=== PATIENT | female | born 1965 | race Caucasian/White ===

== ENCOUNTER 2017-11-27 00:07 | Outpatient (CLI) | payer MEDICARE, MEDICAID ==
[~2017-11-27 00:07] MED LIST: ASPI-611 PO; ATOR-2 PO; BUPR150T8 PO; DESM0.2T23 PO; DICL100G15 TOP; DOCU100C41 PO; DOL10T PO; DULO-31 PO; ESOM40CA30 PO; ESOM40SU PO; FURO40TA4 PO; GABA-534 PO; GEMF600T3 PO; INSU100V36 SQ; LABE100T PO; RANI300T7 PO; SUMA25TA35 PO; TEMA15CA5 PO; TETR500C PO; TIZA2CAP7 PO; TOPI100T18 PO; TRAZ-143 PO; VALA100027 PO
== END 2017-11-27 23:59 | disposition home or self-care (01) ==
LOC: DIABETIC 00:07
PROVIDERS: ATTEND Family Medicine
DX: E11.65 Type 2 diabetes mellitus with hyperglycemia (principal); E11.22 Type 2 diabetes mellitus with diabetic chronic kidney disease; I12.9 Hypertensive chronic kidney disease with stage 1 through stage 4 chronic kidney disease, or unspecified chronic kidney disease; N18.9 Chronic kidney disease, unspecified; J45.909 Unspecified asthma, uncomplicated
CPT/HCPCS: G0108

== ENCOUNTER 2018-01-27 13:14 | Emergency (ER) | payer MEDICARE, MEDICAID ==
[~2018-01-27] VITALS: Ht 172.7 cm; Wt 106.0 kg
[2018-01-27 14:00] LABS: BASOPHILS # (AUTO) 0.1 X10'3 (0-0.2); BASOPHILS % (AUTO) 1.1 % (0-1); EOSINOPHILS # (AUTO) 0.3 X10'3 (0-0.9); EOSINOPHILS % (AUTO) 2.8 % (0-6); HEMATOCRIT 39.8 % (35.0-45.0); HEMOGLOBIN 13.4 g/dl (12.0-16.0); LYMPHOCYTES % (AUTO) 18.1 % (21-51); MEAN CORPUSCULAR HEMOGLOBIN 31.8 PG (27.0-31.0); MEAN CORPUSCULAR HGB CONC 33.7 % (33.0-36.5); MEAN CORPUSCULAR VOLUME 94.6 FL (78-98); MEAN PLATELET VOLUME 7.8 FL (7.4-10.4); MONOCYTES # (AUTO) 0.6 X10'3 (0-0.9); MONOCYTES % (AUTO) 5.5 % (2-12); NEUTROPHILS # (AUTO) 7.9 X10'3 (1.8-7.7); NEUTROPHILS % (AUTO) 72.5 % (42-75); PLATELET COUNT 222 X10'3 (140-440); RED BLOOD COUNT 4.21 X10'6 (4.20-5.60); RED CELL DISTRIBUTION WIDTH 13.4 % (11.5-14.5); WHITE BLOOD COUNT 10.9 X10'3 (4.5-11.0)
[2018-01-27 14:09] LABS: PROTHROMBIN TIME 10.7 SECONDS (9.0-12.0)
[2018-01-27 14:14] LABS: ALANINE AMINOTRANSFERASE 31 U/L (12-78); ALBUMIN 3.7 G/DL (3.4-5.0); ALBUMIN/GLOBULIN RATIO 1.1 (1.1-1.5); ALKALINE PHOSPHATASE 104 IU/L (46-116); ANION GAP 10 (8-16); ASPARTATE AMINO TRANSFERASE 18 U/L (10-37); BILIRUBIN,TOTAL 0.3 MG/DL (0.1-1.0); BLOOD UREA NITROGEN 14 MG/DL (7-18); BUN/CREATININE RATIO 12.7 (6.6-38.0); CALCIUM 9.2 MG/DL (8.5-10.1); CHLORIDE 106 MMOL/L (99-107); GLUCOSE 123 MG/DL (70-104); POTASSIUM 3.8 MMOL/L (3.5-5.1); SODIUM 145 MMOL/L (135-145); TOTAL PROTEIN 7.2 G/DL (6.4-8.2); eGFR 52 ML/MIN
[2018-01-27] MEDS ORDERED: normal saline 1000ML IV soln IVB ONE (14:30)
[2018-01-27] MEDS ORDERED: ketorolac tromethamine 15mg/ml inj. IV ONE (14:30)
[2018-01-27 15:07] LABS: LIPASE < 50 U/L (73-393)
[2018-01-27 15:49] LABS: CLARITY,URINE Clear (Clear); COLOR,URINE Yellow (Yellow); GLUCOSE, URINE Negative (Neg); KETONES,URINE Negative (Neg); LEUKOCYTE ESTERASE ,URINE Negative (Neg); NITRITES, URINE Negative (Neg); OCCULT BLOOD,URINE Negative (Neg); PROTEIN,URINE Negative (Neg); UROBILINOGEN,URINE 0.2 E.U/dL (0.2-1.0)
[2018-01-27 15:52] LABS: UA COLLECTION TYPE CLN CATCH MIDSTREAM
[2018-01-27 16:46] VITALS: BP 165/105
== END 2018-01-27 16:48 | disposition home or self-care (01) ==
LOC: ER 13:16
DX: R10.12 Left upper quadrant pain (principal); E78.00 Pure hypercholesterolemia, unspecified; I10 Essential (primary) hypertension; J44.9 Chronic obstructive pulmonary disease, unspecified; E11.9 Type 2 diabetes mellitus without complications; Z90.710 Acquired absence of both cervix and uterus; Z98.890 Other specified postprocedural states; Z79.82 Long term (current) use of aspirin; Z79.899 Other long term (current) drug therapy; Z88.1 Allergy status to other antibiotic agents; Z88.0 Allergy status to penicillin; Z88.5 Allergy status to narcotic agent; Z88.8 Allergy status to other drugs, medicaments and biological substances; Z79.4 Long term (current) use of insulin
CPT/HCPCS: 36415; 74176; 80053; 81003; 83690; 85025; 85610; 96361; 96374; 99285; J1885; J7030

== ENCOUNTER 2018-02-26 00:24 | Outpatient (CLI) | payer MEDICARE, MEDICAID | END 2018-02-26 23:59 | disposition home or self-care (01) | LOC: DIABETIC 00:24 | PROVIDERS: ATTEND Family Medicine | DX: E11.65 Type 2 diabetes mellitus with hyperglycemia (principal); J44.9 Chronic obstructive pulmonary disease, unspecified; I12.9 Hypertensive chronic kidney disease with stage 1 through stage 4 chronic kidney disease, or unspecified chronic kidney disease; E11.22 Type 2 diabetes mellitus with diabetic chronic kidney disease; N18.9 Chronic kidney disease, unspecified | CPT/HCPCS: G0108 ==

== ENCOUNTER 2018-05-28 04:10 | Outpatient (CLI) | payer MEDICARE, MEDICAID | END 2018-05-28 23:59 | disposition home or self-care (01) | LOC: DIABETIC 04:10 | PROVIDERS: ATTEND Family Medicine | DX: E11.9 Type 2 diabetes mellitus without complications (principal) | CPT/HCPCS: G0108 ==

== ENCOUNTER 2018-09-04 00:56 | Outpatient (CLI) | payer MEDICARE, MEDICAID ==
[~2018-09-04 00:56] MED LIST changes: -GEMF600T3 PO; +GEMF600T4 PO; -LABE100T PO; +LABE100T5 PO; +TETR-59 PO; -TETR500C PO; -TRAZ-143 PO; +TRAZ-218 PO
== END 2018-09-04 23:59 | disposition home or self-care (01) ==
LOC: DIABETIC 00:56
PROVIDERS: ATTEND Family Medicine
DX: E11.65 Type 2 diabetes mellitus with hyperglycemia (principal); I10 Essential (primary) hypertension; J44.9 Chronic obstructive pulmonary disease, unspecified; M19.90 Unspecified osteoarthritis, unspecified site; Z79.82 Long term (current) use of aspirin; Z79.84 Long term (current) use of oral hypoglycemic drugs; Z79.899 Other long term (current) drug therapy; Z79.4 Long term (current) use of insulin
CPT/HCPCS: G0108

== ENCOUNTER 2018-11-08 10:25 | Emergency (ER) | payer MEDICAID ==
[~2018-11-08] VITALS: Ht 172.7 cm; Wt 117.2 kg
[~2018-11-08 10:25] MED LIST changes: -GEMF600T4 PO; +GEMF600T89 PO
[2018-11-08] MEDS ORDERED: ketorolac trometh. 30mg/ml inj. IV ONE (12:15)
[2018-11-08] MEDS ORDERED: IBUP-1985 PO (13:35)
[2018-11-08 14:05] VITALS: BP 183/107
== END 2018-11-08 14:07 | disposition home or self-care (01) ==
LOC: ER 10:26
DX: S52.512A Displaced fracture of left radial styloid process, initial encounter for closed fracture (principal); E78.00 Pure hypercholesterolemia, unspecified; I10 Essential (primary) hypertension; J44.9 Chronic obstructive pulmonary disease, unspecified; E11.9 Type 2 diabetes mellitus without complications; Z90.710 Acquired absence of both cervix and uterus; Z98.890 Other specified postprocedural states; Z88.0 Allergy status to penicillin; Z88.1 Allergy status to other antibiotic agents; Z88.5 Allergy status to narcotic agent; Z88.8 Allergy status to other drugs, medicaments and biological substances; Z79.82 Long term (current) use of aspirin; Z79.899 Other long term (current) drug therapy; Z79.4 Long term (current) use of insulin; W19.XXXA Unspecified fall, initial encounter; Y93.01 Activity, walking, marching and hiking; Y92.89 Other specified places as the place of occurrence of the external cause; Y99.8 Other external cause status
CPT/HCPCS: 29125; 73110; 73502; 73564; 82948; 96374; 99284; J1885

== ENCOUNTER 2018-11-20 11:04 | Outpatient (CLI) | payer MEDICARE, MEDICAID ==
[~2018-11-20] VITALS: Ht 172.7 cm; Wt 111.7 kg
[~2018-11-20 11:04] MED LIST changes: +IBUP-1985 PO; +TOP100T PO; -TOPI100T18 PO
[2018-11-20 11:05] VITALS: BP 118/83
== END 2018-11-20 11:42 | disposition home or self-care (01) ==
LOC: ORTHO 11:04
PROVIDERS: ATTEND Nurse Practitioner Family
DX: S52.612A Displaced fracture of left ulna styloid process, initial encounter for closed fracture (principal); S52.592A Other fractures of lower end of left radius, initial encounter for closed fracture; E78.00 Pure hypercholesterolemia, unspecified; I10 Essential (primary) hypertension; J44.9 Chronic obstructive pulmonary disease, unspecified; E11.9 Type 2 diabetes mellitus without complications; Z90.710 Acquired absence of both cervix and uterus; Z98.890 Other specified postprocedural states; Z88.0 Allergy status to penicillin; Z88.1 Allergy status to other antibiotic agents; Z88.5 Allergy status to narcotic agent; Z88.8 Allergy status to other drugs, medicaments and biological substances; Z79.82 Long term (current) use of aspirin; Z79.899 Other long term (current) drug therapy; Z79.4 Long term (current) use of insulin; W19.XXXA Unspecified fall, initial encounter; Y93.01 Activity, walking, marching and hiking; Y92.89 Other specified places as the place of occurrence of the external cause; Y99.8 Other external cause status
CPT/HCPCS: 73110; 99213

== ENCOUNTER 2018-11-27 11:07 | Outpatient (CLI) | payer MEDICARE, MEDICAID ==
[2018-11-27 11:06] VITALS: BP 145/88
== END 2018-11-27 11:53 | disposition home or self-care (01) ==
LOC: ORTHO 11:07
PROVIDERS: ATTEND Nurse Practitioner Family
DX: S52.592D Other fractures of lower end of left radius, subsequent encounter for closed fracture with routine healing (principal); S52.612D Displaced fracture of left ulna styloid process, subsequent encounter for closed fracture with routine healing; I10 Essential (primary) hypertension; J44.9 Chronic obstructive pulmonary disease, unspecified; E11.9 Type 2 diabetes mellitus without complications; E78.00 Pure hypercholesterolemia, unspecified; G47.30 Sleep apnea, unspecified; K21.9 Gastro-esophageal reflux disease without esophagitis; E03.9 Hypothyroidism, unspecified; Z79.82 Long term (current) use of aspirin; Z79.899 Other long term (current) drug therapy; Z88.0 Allergy status to penicillin; Z88.1 Allergy status to other antibiotic agents; Z88.8 Allergy status to other drugs, medicaments and biological substances; Z87.891 Personal history of nicotine dependence; W19.XXXD Unspecified fall, subsequent encounter
CPT/HCPCS: 73110; 99213

== ENCOUNTER 2018-12-03 11:03 | Outpatient (CLI) | payer MEDICARE, MEDICAID ==
[2018-12-03 10:51] VITALS: BP 150/102
== END 2018-12-03 11:43 | disposition home or self-care (01) ==
LOC: ORTHO 11:03
PROVIDERS: ATTEND Nurse Practitioner Family
DX: S52.592D Other fractures of lower end of left radius, subsequent encounter for closed fracture with routine healing (principal); S52.612D Displaced fracture of left ulna styloid process, subsequent encounter for closed fracture with routine healing; I10 Essential (primary) hypertension; J44.9 Chronic obstructive pulmonary disease, unspecified; E11.9 Type 2 diabetes mellitus without complications; E78.00 Pure hypercholesterolemia, unspecified; G43.909 Migraine, unspecified, not intractable, without status migrainosus; K21.9 Gastro-esophageal reflux disease without esophagitis; F12.90 Cannabis use, unspecified, uncomplicated; Z79.82 Long term (current) use of aspirin; Z79.899 Other long term (current) drug therapy; Z88.0 Allergy status to penicillin; Z88.1 Allergy status to other antibiotic agents; Z88.8 Allergy status to other drugs, medicaments and biological substances; Z87.891 Personal history of nicotine dependence; W19.XXXD Unspecified fall, subsequent encounter
CPT/HCPCS: 73110; G0463

== ENCOUNTER 2018-12-16 09:08 | Outpatient (CLI) | payer MEDICARE, MEDICAID ==
[2018-12-16 09:03] VITALS: BP 156/92
== END 2018-12-16 10:05 | disposition home or self-care (01) ==
LOC: ORTHO 09:08
PROVIDERS: ATTEND Nurse Practitioner Family
DX: S52.592D Other fractures of lower end of left radius, subsequent encounter for closed fracture with routine healing (principal); S52.612D Displaced fracture of left ulna styloid process, subsequent encounter for closed fracture with routine healing; I10 Essential (primary) hypertension; J44.9 Chronic obstructive pulmonary disease, unspecified; E11.9 Type 2 diabetes mellitus without complications; E78.00 Pure hypercholesterolemia, unspecified; G43.909 Migraine, unspecified, not intractable, without status migrainosus; K21.9 Gastro-esophageal reflux disease without esophagitis; F12.90 Cannabis use, unspecified, uncomplicated; Z79.82 Long term (current) use of aspirin; Z79.899 Other long term (current) drug therapy; Z88.0 Allergy status to penicillin; Z88.1 Allergy status to other antibiotic agents; Z88.8 Allergy status to other drugs, medicaments and biological substances; Z87.891 Personal history of nicotine dependence; W19.XXXD Unspecified fall, subsequent encounter
CPT/HCPCS: 73110; 99213; A4590

== ENCOUNTER 2018-12-31 09:08 | Outpatient (CLI) | payer MEDICARE, MEDICAID ==
[2018-12-31 09:02] VITALS: BP 146/81
== END 2018-12-31 09:45 | disposition home or self-care (01) ==
LOC: ORTHO 09:08
PROVIDERS: ATTEND Nurse Practitioner Family
DX: S52.592D Other fractures of lower end of left radius, subsequent encounter for closed fracture with routine healing (principal); S52.612D Displaced fracture of left ulna styloid process, subsequent encounter for closed fracture with routine healing; I10 Essential (primary) hypertension; J44.9 Chronic obstructive pulmonary disease, unspecified; E11.9 Type 2 diabetes mellitus without complications; G43.909 Migraine, unspecified, not intractable, without status migrainosus; K21.9 Gastro-esophageal reflux disease without esophagitis; F12.90 Cannabis use, unspecified, uncomplicated; Z79.82 Long term (current) use of aspirin; Z79.899 Other long term (current) drug therapy; Z88.0 Allergy status to penicillin; Z88.1 Allergy status to other antibiotic agents; Z87.891 Personal history of nicotine dependence; W19.XXXD Unspecified fall, subsequent encounter
CPT/HCPCS: 73110; 99213; A4590

== ENCOUNTER 2019-01-12 04:09 | Outpatient (CLI) | payer MEDICARE, MEDICAID | END 2019-01-12 23:59 | disposition home or self-care (01) | LOC: DIABETIC 04:09 | PROVIDERS: ATTEND Family Medicine | DX: E11.9 Type 2 diabetes mellitus without complications (principal); Z71.3 Dietary counseling and surveillance | CPT/HCPCS: G0108 ==

== ENCOUNTER 2019-01-19 09:26 | Outpatient (CLI) | payer MEDICARE, MEDICAID ==
[2019-01-19 09:22] VITALS: BP 189/101
== END 2019-01-19 10:20 | disposition home or self-care (01) ==
LOC: ORTHO 09:26
PROVIDERS: ATTEND Nurse Practitioner Family
DX: S52.502D Unspecified fracture of the lower end of left radius, subsequent encounter for closed fracture with routine healing (principal); I10 Essential (primary) hypertension; E11.9 Type 2 diabetes mellitus without complications; G47.30 Sleep apnea, unspecified; M79.7 Fibromyalgia; X58.XXXD Exposure to other specified factors, subsequent encounter; Z90.710 Acquired absence of both cervix and uterus
CPT/HCPCS: 73110; 99213

== ENCOUNTER 2019-01-28 09:28 | Emergency (ER) | payer MEDICARE, MEDICAID ==
[~2019-01-28] VITALS: Ht 172.7 cm; Wt 121.8 kg
[2019-01-28 09:58] VITALS: BP 124/83
== END 2019-01-28 10:26 | disposition home or self-care (01) ==
LOC: ER 09:29
DX: I10 Essential (primary) hypertension (principal); E78.00 Pure hypercholesterolemia, unspecified; J44.9 Chronic obstructive pulmonary disease, unspecified; E11.9 Type 2 diabetes mellitus without complications; M79.7 Fibromyalgia; Z98.890 Other specified postprocedural states; Z90.710 Acquired absence of both cervix and uterus; Z88.1 Allergy status to other antibiotic agents; Z88.0 Allergy status to penicillin; Z88.5 Allergy status to narcotic agent; Z88.8 Allergy status to other drugs, medicaments and biological substances; Z79.82 Long term (current) use of aspirin; Z79.4 Long term (current) use of insulin; Z79.899 Other long term (current) drug therapy
CPT/HCPCS: 99281

== ENCOUNTER 2019-02-10 14:26 | Outpatient (CLI) | payer MEDICARE, MEDICAID ==
[2019-02-10 14:24] VITALS: BP 117/81
== END 2019-02-10 15:36 | disposition home or self-care (01) ==
LOC: ORTHO 14:26
PROVIDERS: ATTEND Orthopaedic Surgery
DX: S52.592D Other fractures of lower end of left radius, subsequent encounter for closed fracture with routine healing (principal); S52.612D Displaced fracture of left ulna styloid process, subsequent encounter for closed fracture with routine healing; I10 Essential (primary) hypertension; J44.9 Chronic obstructive pulmonary disease, unspecified; G47.30 Sleep apnea, unspecified; E11.9 Type 2 diabetes mellitus without complications; Z90.710 Acquired absence of both cervix and uterus; Z79.82 Long term (current) use of aspirin; X58.XXXD Exposure to other specified factors, subsequent encounter
CPT/HCPCS: 73110; 99213

== ENCOUNTER 2019-02-16 14:46 | Emergency (ER) | payer MEDICARE, MEDICAID ==
[~2019-02-16] VITALS: Ht 172.7 cm; Wt 122.7 kg
[~2019-02-16 14:46] MED LIST changes: -ESOM40CA30 PO; +ESOM40CA49 PO
[2019-02-16] MEDS ORDERED: MECL12.584 PO (16:05)
[2019-02-16 16:48] VITALS: BP 137/84
== END 2019-02-16 16:49 | disposition home or self-care (01) ==
LOC: ER 14:46
DX: S50.12XA Contusion of left forearm, initial encounter (principal); S60.212A Contusion of left wrist, initial encounter; R42 Dizziness and giddiness; E78.00 Pure hypercholesterolemia, unspecified; I10 Essential (primary) hypertension; J44.9 Chronic obstructive pulmonary disease, unspecified; E11.9 Type 2 diabetes mellitus without complications; M79.7 Fibromyalgia; Z98.890 Other specified postprocedural states; Z90.710 Acquired absence of both cervix and uterus; Z88.1 Allergy status to other antibiotic agents; Z88.8 Allergy status to other drugs, medicaments and biological substances; Z88.5 Allergy status to narcotic agent; Z79.82 Long term (current) use of aspirin; Z79.899 Other long term (current) drug therapy; W19.XXXA Unspecified fall, initial encounter; Y93.89 Activity, other specified; Y92.89 Other specified places as the place of occurrence of the external cause; Y99.9 Unspecified external cause status
CPT/HCPCS: 73060; 73090; 73110; 93005; 99284

== ENCOUNTER 2019-04-13 04:36 | Outpatient (CLI) | payer MEDICARE, MEDICAID ==
[~2019-04-13 04:36] MED LIST changes: +MECL12.584 PO; -TRAZ-218 PO; +TRAZ-251 PO
== END 2019-04-13 23:59 | disposition home or self-care (01) ==
LOC: DIABETIC 04:36
PROVIDERS: ATTEND Family Medicine
DX: E11.65 Type 2 diabetes mellitus with hyperglycemia (principal); I10 Essential (primary) hypertension; J44.9 Chronic obstructive pulmonary disease, unspecified; Z79.84 Long term (current) use of oral hypoglycemic drugs; Z79.4 Long term (current) use of insulin; Z79.899 Other long term (current) drug therapy
CPT/HCPCS: G0108

== ENCOUNTER 2019-08-05 01:34 | Outpatient (CLI) | payer MEDICARE, MEDICAID | END 2019-08-05 23:59 | disposition home or self-care (01) | LOC: DIABETIC 01:34 | PROVIDERS: ATTEND Family Medicine | DX: E11.65 Type 2 diabetes mellitus with hyperglycemia (principal); I10 Essential (primary) hypertension; J44.9 Chronic obstructive pulmonary disease, unspecified; Z79.4 Long term (current) use of insulin; Z79.84 Long term (current) use of oral hypoglycemic drugs; Z79.82 Long term (current) use of aspirin; Z79.899 Other long term (current) drug therapy | CPT/HCPCS: G0108 ==

== ENCOUNTER 2019-08-10 16:22 | Emergency (ER) | payer MEDICARE, MEDICAID ==
[~2019-08-10] VITALS: Ht 172.7 cm; Wt 98.0 kg
[2019-08-10] MEDS ORDERED: triamcinolone acetonide 0.1% ointment 15gm TP STA (17:23)
[2019-08-10] MEDS ORDERED: lactulose 20gm/30ml cup PO ONE (17:35)
[2019-08-10] MEDS ORDERED: mineral oil 133ml enema RC STA (17:58)
[2019-08-10] MEDS ORDERED: glycerin ADULT rectal suppository RC ONE (19:10)
[2019-08-10] MEDS ORDERED: MAGN296S50 PO (19:18)
--- NOTE | 2019-08-10 19:22 | NUR ---
PT HAS STOOL ON [facility]IN[facility] [place]
--- NOTE | 2019-08-10 19:22 | NUR ---
HELEN TRIPLETT NOTIFIED, WHILE PUTIING IN THE MINERAL ENIMA PT WS NOT TRYING TO HOLD THE MINERAL OIL IN HER RECTUM. THE MNERAL OIL WAS COMING OUT.
[2019-08-10 19:42] VITALS: BP 131/91
== END 2019-08-10 19:48 | disposition home or self-care (01) ==
LOC: ER 16:23
DX: K59.00 Constipation, unspecified (principal); E78.00 Pure hypercholesterolemia, unspecified; I10 Essential (primary) hypertension; J44.9 Chronic obstructive pulmonary disease, unspecified; E11.9 Type 2 diabetes mellitus without complications; G47.30 Sleep apnea, unspecified; M79.7 Fibromyalgia; F32.9 Major depressive disorder, single episode, unspecified; Z90.710 Acquired absence of both cervix and uterus; Z98.890 Other specified postprocedural states; Z88.1 Allergy status to other antibiotic agents; Z88.0 Allergy status to penicillin; Z88.5 Allergy status to narcotic agent; Z88.2 Allergy status to sulfonamides; Z91.09 Other allergy status, other than to drugs and biological substances; Z79.82 Long term (current) use of aspirin; Z79.4 Long term (current) use of insulin; Z79.899 Other long term (current) drug therapy
CPT/HCPCS: 74018; 82948; 99284

== ENCOUNTER 2019-12-09 15:20 | Emergency (ER) | payer MEDICARE, MEDICAID ==
[~2019-12-09] VITALS: Ht 172.7 cm; Wt 115.9 kg
[~2019-12-09 15:20] MED LIST changes: +MAGN296S70 PO; +MECL-183 PO; -MECL12.584 PO
[2019-12-09] MEDS ORDERED: ketorolac trometh inj. 60 MG/2 ML VIAL IM ONE (16:15)
[2019-12-09] MEDS ORDERED: fentaNYL/PF 50MCG/1 ML 2ML syringe IM ONE (16:15)
[2019-12-09 16:57] VITALS: BP 111/73
== END 2019-12-09 18:12 | disposition home or self-care (01) ==
LOC: ER 15:20
DX: S22.32XA Fracture of one rib, left side, initial encounter for closed fracture (principal); E78.00 Pure hypercholesterolemia, unspecified; I10 Essential (primary) hypertension; J44.9 Chronic obstructive pulmonary disease, unspecified; E11.9 Type 2 diabetes mellitus without complications; G47.30 Sleep apnea, unspecified; M79.7 Fibromyalgia; F32.9 Major depressive disorder, single episode, unspecified; Z90.710 Acquired absence of both cervix and uterus; Z98.890 Other specified postprocedural states; Z88.0 Allergy status to penicillin; Z88.5 Allergy status to narcotic agent; Z88.1 Allergy status to other antibiotic agents; Z88.8 Allergy status to other drugs, medicaments and biological substances; Z79.82 Long term (current) use of aspirin; Z79.899 Other long term (current) drug therapy; W01.190A Fall on same level from slipping, tripping and stumbling with subsequent striking against furniture, initial encounter; Y93.89 Activity, other specified; Y92.090 Kitchen in other non-institutional residence as the place of occurrence of the external cause; Y99.8 Other external cause status
CPT/HCPCS: 71101; 82948; 96372; 99283; J1885; J3010

== ENCOUNTER 2020-01-18 04:17 | Outpatient (CLI) | payer MEDICARE, MEDICAID ==
[~2020-01-18 04:17] MED LIST changes: -VALA100027 PO; +VALA100031 PO
== END 2020-01-18 23:59 | disposition home or self-care (01) ==
LOC: DIABETIC 04:17
PROVIDERS: ATTEND Family Medicine
DX: E11.65 Type 2 diabetes mellitus with hyperglycemia (principal)
CPT/HCPCS: G0108

== ENCOUNTER 2020-01-19 08:54 | Outpatient (CLI) | payer MEDICARE, MEDICAID | END 2020-01-19 23:59 | disposition home or self-care (01) | LOC: RAD 08:54 | PROVIDERS: ATTEND Psychiatry & Neurology Neurology | DX: R94.01 Abnormal electroencephalogram [EEG] (principal); G40.909 Epilepsy, unspecified, not intractable, without status epilepticus | CPT/HCPCS: 95816 ==

== ENCOUNTER 2020-06-08 11:18 | Observation (INO) | payer MEDICARE, MEDICAID ==
[~2020-06-08] VITALS: Ht 172.7 cm; Wt 111.4 kg
[2020-06-08] MEDS ORDERED: normal saline 1000ML IV soln IVB ONE (11:45)
[2020-06-08 12:06] LABS: BASOPHILS # (AUTO) 0.1 X10'3 (0-0.2); BASOPHILS % (AUTO) 0.7 % (0-1); EOSINOPHILS # (AUTO) 0.3 X10'3 (0-0.9); HEMATOCRIT 37.8 % (35.0-45.0); HEMOGLOBIN 12.5 g/dl (12.0-16.0); LYMPHOCYTES # (AUTO) 1.5 X10'3 (1.1-4.8); LYMPHOCYTES % (AUTO) 11.4 % (21-51); MEAN CORPUSCULAR HEMOGLOBIN 30.3 PG (27.0-31.0); MEAN CORPUSCULAR HGB CONC 33.2 g/dL (33.0-36.5); MEAN CORPUSCULAR VOLUME 91.4 FL (78-98); MEAN PLATELET VOLUME 7.4 FL (7.4-10.4); MONOCYTES # (AUTO) 0.7 X10'3 (0-0.9); MONOCYTES % (AUTO) 5.6 % (2-12); NEUTROPHILS # (AUTO) 10.3 X10'3 (1.8-7.7); NEUTROPHILS % (AUTO) 80.3 % (42-75); PLATELET COUNT 285 X10'3 (140-440); RED BLOOD COUNT 4.13 X10'6 (4.20-5.60); RED CELL DISTRIBUTION WIDTH 12.9 % (11.5-14.5); WHITE BLOOD COUNT 12.8 X10'3 (4.5-11.0)
--- NOTE | 2020-06-08 12:17 | NUR ---
pt stated took lovenox and novalog this morning at 0800 before breafast. pt unable to eat breakfast. mickey notified and ordered to give pt food to help with bs. turkey sandwitch, grahm crackers and apple sauce given to pt. no distress noted. vss.
[2020-06-08 12:19] LABS: ALANINE AMINOTRANSFERASE 28 U/L (12-78); ALBUMIN 3.5 G/DL (3.4-5.0); ALBUMIN/GLOBULIN RATIO 1.1 (1.1-1.5); ALKALINE PHOSPHATASE 85 IU/L (46-116); ANION GAP 6 (8-16); ASPARTATE AMINO TRANSFERASE 15 U/L (10-37); BILIRUBIN,TOTAL 0.4 MG/DL (0.1-1.0); BLOOD UREA NITROGEN 26 MG/DL (7-18); BUN/CREATININE RATIO 15.7 (6.6-38.0); CALCIUM 9.5 MG/DL (8.5-10.1); CHLORIDE 99 MMOL/L (99-107); CREATININE 1.66 MG/DL (0.40-0.90); GLUCOSE 91 MG/DL (70-104); SODIUM 136 MMOL/L (135-145); TOTAL CARBON DIOXIDE 31.1 MMOL/L (24-32); TOTAL PROTEIN 6.6 G/DL (6.4-8.2); eGFR 32 ML/MIN
[2020-06-08] MEDS ORDERED: aspirin 81mg tab.chew PO ONE (12:50)
[2020-06-08] MEDS ORDERED: regadenoson 0.4mg/5ml syringe IV PRN (13:00)
[2020-06-08] MEDS ORDERED: potassium CL 10mEq/100ml bag 100 ML IV PRN ×2 (13:00)
[2020-06-08] MEDS ORDERED: bisacodyl 10mg suppository rectal RC PRN (13:00)
[2020-06-08] MEDS ORDERED: metoprolol tartrate 1mg/ml inj IV PRN (13:00)
[2020-06-08] MEDS ORDERED: magnesium 4gm in 100ml NS 100 ML IV PRN (13:00)
[2020-06-08] MEDS ORDERED: magnesium 2GM in 50ml NS 50 ML IV PRN (13:00)
[2020-06-08] MEDS ORDERED: mag hydrox/Alum hydrox/simeth 30ml oral suspension PO PRN (13:00)
[2020-06-08] MEDS ORDERED: acetaminophen 325mg tablet PO PRN ×2 (13:00)
[2020-06-08] MEDS ORDERED: potassium Cl 20 mEq SR tablet PO PRN (13:00)
[2020-06-08] MEDS ORDERED: nitroGLYCERIN 0.4mg SUBLingual tab SL PRN (13:00)
[2020-06-08] MEDS ORDERED: magnesium hydroxide 30ml (MOM) UD suspension PO PRN (13:00)
[2020-06-08] MEDS ORDERED: magnesium Cl slow-release 64mg tablet PO PRN (13:00)
[2020-06-08] MEDS ORDERED: aminophylline 250mg/10ml inj. IV PRN (13:00)
[2020-06-08] MEDS ORDERED: CLON-473 PO (13:36)
[2020-06-08] MEDS ORDERED: OXYB5TAB16 PO (13:36)
[2020-06-08] MEDS ORDERED: MONT10TA26 PO (13:36)
[2020-06-08] MEDS ORDERED: BUPR150T6 PO (13:36)
[2020-06-08] MEDS ORDERED: ROPI2TAB7 PO (13:36)
[2020-06-08] MEDS ORDERED: OXYC15TA PO (13:36)
[2020-06-08] MEDS ORDERED: IRBE300T18 PO (13:36)
[2020-06-08] MEDS ORDERED: BACL10TA2 PO (13:36)
[2020-06-08] MEDS ORDERED: AMLO10TA13 PO (13:36)
[2020-06-08] MEDS ORDERED: INSU100V9 SQ (13:36)
[2020-06-08] MEDS ORDERED: DESM0.1T24 PO (13:36)
[2020-06-08] MEDS ORDERED: DICL100G30 TP (13:36)
[2020-06-08] MEDS ORDERED: NIFE-34 PO (13:36)
[2020-06-08] MEDS ORDERED: LANTUS SQ (13:36)
[2020-06-08] MEDS ORDERED: SUCR1TAB PO (13:36)
[2020-06-08] MEDS ORDERED: LACT10SO67 PO (13:36)
[2020-06-08] MEDS ORDERED: METF-795 PO (13:36)
[2020-06-08] MEDS ORDERED: LEVO300T2 PO (13:36)
[2020-06-08] MEDS ORDERED: FURO40TA4 PO (13:36)
[2020-06-08] MEDS ORDERED: CALC1TAB97 PO (13:36)
[2020-06-08] MEDS ORDERED: MECL-184 PO (13:36)
[2020-06-08] MEDS ORDERED: LABE200T5 PO (13:36)
[2020-06-08] MEDS ORDERED: BUSP-28 PO (13:36)
[2020-06-08] MEDS ORDERED: PANT40TA4 PO (13:36)
[2020-06-08] MEDS ORDERED: DULO60CA65 PO (13:36)
[2020-06-08] MEDS ORDERED: PRAV40TA3 PO (13:36)
[2020-06-08] MEDS ORDERED: CARB15DR82 EACHEYE (13:36)
[2020-06-08 14:03] LABS: HEMOGLOBIN A1C 6.3 % (4.5-6.2)
[2020-06-08] MEDS ORDERED: INSU100C4 SQ (14:08)
[2020-06-08] MEDS ORDERED: SUMA100T16 PO (14:08)
[2020-06-08] MEDS: normal saline 1000ml 1,000 ML IV SCH ×2 (14:22→23:36)
--- NOTE | 2020-06-08 14:35 | NUR ---
Received report from LISSETTE Maya. all questions answered
--- NOTE | 2020-06-08 14:55 | NUR ---
Patient arrived to unit via gurney. patient ambulated from gurney to bed. patient arrived with all known belongings. patient attached to monitoring and vitals signs stable. will continue to monitor
[2020-06-08 15:29] VITALS: BP 121/71
[2020-06-08 18:00] VITALS: BP 151/86
--- NOTE | 2020-06-08 18:25 | NUR ---
Patient in room MED 310. I have received report from Manuel, and had the opportunity to ask questions and assume patient care.
--- NOTE | 2020-06-08 19:52 | NUR ---
Patient just finished her dinner. Alert, oriented x4. Will recheck her blood sugar at 2100.
[2020-06-08] MEDS: K and/or MAG REPLACEMENT MC SCH (20:00)
[2020-06-08] MEDS: polyvinyl alcohol ophthalmic drops 15ml bottle EACHEYE SCH (20:26)
[2020-06-08] MEDS: ROPINIRole 1mg tablet PO SCH (20:26)
[2020-06-08] MEDS: sucralfate 1 gm tablet PO SCH ×2 (20:27→20:44)
[2020-06-08] MEDS: busPIRone 5mg tablet PO SCH (20:28)
[2020-06-08] MEDS: oxybutynin 5mg tablet PO SCH (20:28)
[2020-06-08] MEDS: buPROPion SR 100mg tab PO SCH (20:28)
[2020-06-08] MEDS: docusate sod 100mg capsule PO SCH (20:29)
[2020-06-08] MEDS: gabapentin 300mg capsule PO SCH (20:29)
[2020-06-08] MEDS: cloNIDine 0.1 mg tablet PO SCH (20:29)
[2020-06-08] MEDS: labetalol 100mg tablet PO SCH (20:31)
--- NOTE | 2020-06-08 20:31 | NUR ---
systolic blood pressure is 105. holding onto her blood pressor medications-labetalol and clonidine
--- NOTE | 2020-06-08 20:51 | NUR ---
PAGER ID: [phone] MESSAGE: Surekha Giraldo 55F, dmitted for syncope and elevated trops w hx of fibromyalgia, arthritis, COPD, HTN, DM, complaining of chronic pain. She takes 15mg oxycodone at home. He has allergy to codeine, hydrocodone, meperidine. Jonathan [phone]
[2020-06-08] MEDS ORDERED: DESMOPRESSIN ACETATE 0.1 MG TABLET PO SCH (21:00)
[2020-06-08] MEDS ORDERED: temazepam 15mg capsule PO PRN (21:00)
[2020-06-08] MEDS ORDERED: traZODone 50mg tablet PO SCH (21:00)
--- NOTE | 2020-06-08 21:04 | NUR ---
PAGER ID: [phone] MESSAGE: Surekha Giraldo 55F, admitted for syncope and elevated trops w hx of fibromyalgia, arthritis, COPD, HTN, DM, Allergic to Codeine, Dilaudid, morphine, Demorol, hydrocodone. She can't take dilaudid for pain. Jonathan ACCE [id number] Addendum: 06/08/20 at 2108 by Faheem Alanis RN Patient is allergic to dilaudid. He ordered oxycodone 10mg PO q6hr PRN for severe pain. No other orders were given at this time.
[2020-06-08] MEDS ORDERED: OXYcodone (OXYCONTIN) Ext Release 15 MG TAB.SR.12H PO PRN (21:10)
[2020-06-08] MEDS ORDERED: oxyCODONE IR 5mg (immed. release) tablet PO PRN (21:45)
[2020-06-08 21:56] LABS: CLARITY,URINE CLOUDY (Clear); COLOR,URINE YELLOW (Yellow); GLUCOSE, URINE NEGATIVE (Neg); KETONES,URINE NEGATIVE (Neg); LEUKOCYTE ESTERASE ,URINE TRACE (Neg); NITRITES, URINE NEGATIVE (Neg); OCCULT BLOOD,URINE NEGATIVE (Neg); PH,URINE 5.5 (4.8-8.0); PROTEIN,URINE NEGATIVE (Neg); UROBILINOGEN,URINE 0.2 E.U/dL (0.2-1.0)
[2020-06-08 21:59] LABS: UA COLLECTION TYPE NON-SPECIFIED
[2020-06-08 22:00] VITALS: BP 154/76
[2020-06-08 22:01] LABS: BACTERIA,URINE 4+ /HPF (Neg); RBC,URINE NONE SEEN /HPF (0-2); SQUAMOUS EPITHELIAL CELL,UR MODERATE /LPF (FEW); WBC,URINE 0-4 /HPF (0-4)
--- NOTE | 2020-06-08 22:13 | NUR ---
Patient is very rude, noncompliant, does not follow command. She has been told that she is going for lexiscan (stress test) in the morning and NPO after midnight, she stated that she doesn't care and wants to drink water. Jackson-RN, the charge nurse is aware of the issue.
--- NOTE | 2020-06-08 22:33 | NUR ---
Patient refused orthostatic vitals.
[2020-06-09] VITALS (13 sets, daily range): BP systolic 79–151; BP diastolic 57–107
--- NOTE | 2020-06-09 02:47 | NUR ---
Dr. Bear informed regarding the UA result with +4 bacteria in the urine. He acknowledged it but did not order any Antibiotics due patient being allergic to multiple antibiotics.
[2020-06-09 05:51] LABS: BASOPHILS % (AUTO) 0.4 % (0-1); EOSINOPHILS # (AUTO) 0.2 X10'3 (0-0.9); HEMATOCRIT 33.2 % (35.0-45.0); HEMOGLOBIN 11.4 g/dl (12.0-16.0); LYMPHOCYTES # (AUTO) 1.6 X10'3 (1.1-4.8); LYMPHOCYTES % (AUTO) 16.7 % (21-51); MEAN CORPUSCULAR HEMOGLOBIN 31.7 PG (27.0-31.0); MEAN CORPUSCULAR HGB CONC 34.3 g/dL (33.0-36.5); MEAN CORPUSCULAR VOLUME 92.4 FL (78-98); MEAN PLATELET VOLUME 7.3 FL (7.4-10.4); MONOCYTES # (AUTO) 0.6 X10'3 (0-0.9); MONOCYTES % (AUTO) 6.4 % (2-12); NEUTROPHILS # (AUTO) 7.1 X10'3 (1.8-7.7); NEUTROPHILS % (AUTO) 74.5 % (42-75); PLATELET COUNT 193 X10'3 (140-440); RED BLOOD COUNT 3.59 X10'6 (4.20-5.60); RED CELL DISTRIBUTION WIDTH 12.7 % (11.5-14.5); WHITE BLOOD COUNT 9.5 X10'3 (4.5-11.0)
--- NOTE | 2020-06-09 06:06 | NUR ---
Problems reprioritized. Patient report given Sharita, questions answered & plan of care reviewed with .
--- NOTE | 2020-06-09 06:10 | NUR ---
Patient in room MED 310. I have received report from LISSETTE Mayen and had the opportunity to ask questions and assume patient care.
[2020-06-09 06:17] LABS: ALANINE AMINOTRANSFERASE 25 U/L (12-78); ALBUMIN/GLOBULIN RATIO 1.1 (1.1-1.5); ALKALINE PHOSPHATASE 81 IU/L (46-116); ANION GAP 5 (8-16); ASPARTATE AMINO TRANSFERASE 13 U/L (10-37); BILIRUBIN,TOTAL 0.3 MG/DL (0.1-1.0); BLOOD UREA NITROGEN 20 MG/DL (7-18); BUN/CREATININE RATIO 19.2 (6.6-38.0); CALCIUM 8.2 MG/DL (8.5-10.1); CHLORIDE 102 MMOL/L (99-107); CHOL/HDL RATIO 3.1 (0.00-4.99); CHOLESTEROL 108 MG/DL (0-200); CREATININE 1.04 MG/DL (0.40-0.90); GLUCOSE 122 MG/DL (70-104); HDL CHOLESTEROL 35 MG/DL (35-60); LDL CHOLESTEROL 56 MG/DL (50-100); MAGNESIUM 1.6 MG/DL (1.5-2.4); PHOSPHORUS 3.4 MG/DL (2.3-4.5); POTASSIUM 3.3 MMOL/L (3.5-5.1); SODIUM 137 MMOL/L (135-145); TOTAL CARBON DIOXIDE 30.2 MMOL/L (24-32); TOTAL PROTEIN 5.8 G/DL (6.4-8.2); TRIGLYCERIDES 113 MG/DL (20-135); eGFR 55 ML/MIN
[2020-06-09] MEDS ORDERED: levoTHYROXINE 100mcg tablet PO SCH (07:00)
[2020-06-09] MEDS: docusate sod 100mg capsule PO SCH (07:13)
[2020-06-09] MEDS: gabapentin 300mg capsule PO SCH ×2 (07:13→13:03)
[2020-06-09] MEDS: oxybutynin 5mg tablet PO SCH ×2 (07:14→13:03)
[2020-06-09] MEDS: busPIRone 5mg tablet PO SCH ×2 (07:14→13:03)
[2020-06-09] MEDS: buPROPion SR 100mg tab PO SCH (07:15)
[2020-06-09] MEDS: ROPINIRole 1mg tablet PO SCH (07:15)
[2020-06-09] MEDS: sucralfate 1 gm tablet PO SCH ×2 (07:16→12:21)
[2020-06-09] MEDS: polyvinyl alcohol ophthalmic drops 15ml bottle EACHEYE SCH (07:16)
[2020-06-09] MEDS: K and/or MAG REPLACEMENT MC SCH (07:22)
--- NOTE | 2020-06-09 07:23 | NUR ---
Per Nuc med tech give all BP meds including Beta Blockers
[2020-06-09] MEDS: cloNIDine 0.1 mg tablet PO SCH ×2 (07:28→13:03)
[2020-06-09] MEDS: potassium Cl 20 mEq SR tablet PO PRN ×2 (07:28→12:21)
[2020-06-09] MEDS: labetalol 100mg tablet PO SCH ×2 (07:29→13:03)
[2020-06-09] MEDS ORDERED: duloxetine 30mg CAPSULE.DR PO SCH (08:00)
[2020-06-09] MEDS ORDERED: enoxaparin 40mg/0.4ml syringe SUBCUT SCH (08:00)
[2020-06-09] MEDS ORDERED: pantoprazole 40mg Tablet.DR PO SCH (08:00)
[2020-06-09] MEDS ORDERED: losartan 50mg tablet PO SCH (08:00)
[2020-06-09] MEDS ORDERED: aspirin 81mg tab.chew PO SCH (08:00)
[2020-06-09] MEDS ORDERED: amLODIPine 5mg tablet PO SCH (08:00)
[2020-06-09] MEDS ORDERED: furosemide 20MG tablet PO SCH (08:00)
[2020-06-09] MEDS ORDERED: NIFEdipine XL 30mg tablet PO SCH (08:00)
[2020-06-09] MEDS: normal saline 1000ml 1,000 ML IV SCH ×2 (08:59→12:46)
--- NOTE | 2020-06-09 09:01 | NUR ---
DM consult: Pt with A1c 6.3%, DM education not warranted at this time. Will continue to follow. Addendum: 06/09/20 at [address] Amended: Links added.
--- NOTE | 2020-06-09 15:34 | NUR ---
Discharged. PIV taken out. Educated on follow-up. Safe for DC per Dr Murcia. Want with staff member down to lobby to be picked up by ride.
[2020-06-09] MEDS ORDERED: gabapentin 400mg capsule PO SCH (20:00)
--- NOTE | 2020-06-10 14:47 | NUR ---
Case Management DC follow up: spoke to pt via telephone. s/p: syncope Reports:"doing good, no dizziness or fainting spells". Denies: acute/continuous CP, emergent SOB, resp distress, N/V, ROLLE,vertigo, syncope episodes, weakness,emergent general pain, abd tenderness/distension, bladder pain, dysuria, polyuria, hematuria, retention, constipation, diarrhea, fever, unexplained bleeding, bruising. Verbalizes understanding of s/s that warrant 9-11/ER visit for further evaluation. Verbalizes understanding of Rx and why prescribed, resumes current Rx, taking as ordered, no ase r/t polypharmacy. Acknowledges need to schedule/keep follow up appts w/ PCP/Anil at [facility], awaiting a call back to schedule & a referral to [facility]. Pt has 3 CG for 03/06 care. Stated she felt her vision was blurry this morning when she got up for about half an hour, but has since resolved. pt did not call anyone. Pt agreed to let PCP know as well as CG. Verbalizes compliance w/DC aftercare. Needs met, questions answered at DC, no further questions or concerns at this time.
== END 2020-06-09 14:45 | disposition home or self-care (01) ==
LOC: ER 11:19 → INTOOBSV 12:59 → ED HOLD 12:59 → MED 3N 14:49
PROVIDERS: ADMIT Family Medicine; ATTEND Family Medicine
DX: R55 Syncope and collapse (principal); I21.4 Non-ST elevation (NSTEMI) myocardial infarction; E03.9 Hypothyroidism, unspecified; I95.9 Hypotension, unspecified; R79.89 Other specified abnormal findings of blood chemistry; I12.9 Hypertensive chronic kidney disease with stage 1 through stage 4 chronic kidney disease, or unspecified chronic kidney disease; E11.22 Type 2 diabetes mellitus with diabetic chronic kidney disease; N18.9 Chronic kidney disease, unspecified; E78.5 Hyperlipidemia, unspecified; F41.1 Generalized anxiety disorder; K21.9 Gastro-esophageal reflux disease without esophagitis; M79.7 Fibromyalgia; E78.00 Pure hypercholesterolemia, unspecified; J44.9 Chronic obstructive pulmonary disease, unspecified; G47.30 Sleep apnea, unspecified; F32.9 Major depressive disorder, single episode, unspecified; Z86.73 Personal history of transient ischemic attack (TIA), and cerebral infarction without residual deficits; Z90.711 Acquired absence of uterus with remaining cervical stump; Z79.82 Long term (current) use of aspirin; Z79.4 Long term (current) use of insulin; Z79.899 Other long term (current) drug therapy; Z88.1 Allergy status to other antibiotic agents; Z88.2 Allergy status to sulfonamides; Z91.048 Other nonmedicinal substance allergy status; Z88.0 Allergy status to penicillin; Z88.5 Allergy status to narcotic agent; Z88.8 Allergy status to other drugs, medicaments and biological substances
CPT/HCPCS: 36415; 70450; 71045; 78452; 80053; 80061; 81001; 82948; 83036; 83735; 84100; 84484; 85025; 87077; 87081; 87088; 93005; 93017; 93306; 96361; 96372; 96374; 99285; A9500; G0378; J0280; J2785; J7030; 78451; 96360; J1650

== ENCOUNTER 2020-07-27 14:44 | Inpatient (IN) | payer MEDICARE, MEDICAID ==
[~2020-07-27] VITALS: Ht 172.7 cm; Wt 109.1 kg
[~2020-07-27 14:44] MED LIST changes: +AMLO10TA13 PO; -ATOR-2 PO; +BACL10TA2 PO; +BUPR150T6 PO; -BUPR150T8 PO; +BUSP-28 PO; +CALC1TAB97 PO; +CARB15DR82 EACHEYE; +CLON-473 PO; +DESM0.1T24 PO; -DESM0.2T23 PO; -DICL100G15 TOP; +DICL100G30 TP; -DOL10T PO; -DULO-31 PO; +DULO60CA65 PO; -ESOM40CA49 PO; -ESOM40SU PO; -IBUP-1985 PO; +INSU100C4 SQ; -INSU100V36 SQ; +INSU100V9 SQ; +IRBE300T18 PO; -LABE100T5 PO; +LABE200T5 PO; +LACT10SO67 PO; +LANTUS SQ; +LEVO300T2 PO; -MAGN296S70 PO; -MECL-183 PO; +MECL-184 PO; +METF-795 PO; +NIFE-34 PO; +OXYB5TAB16 PO; +OXYC15TA PO; +PANT40TA54 PO; +PRAV40TA3 PO; -RANI300T7 PO; +ROPI2TAB7 PO; +SUCR1TAB PO; +SUMA100T16 PO; -SUMA25TA35 PO; -TEMA15CA5 PO; -TETR-59 PO; -TIZA2CAP7 PO; -TOP100T PO; -VALA100031 PO
[2020-07-27] MEDS ORDERED: nitroGLYCERIN 0.4mg SUBLingual tab SL PRN (15:05)
[2020-07-27] MEDS ORDERED: normal saline 1000ML IV soln IVB ONE (15:05)
[2020-07-27] MEDS ORDERED: ondansetron/PF 4mg/2ml inj IV ONE (15:05)
[2020-07-27 15:30] LABS: BASOPHILS # (AUTO) 0.1 X10'3 (0-0.2); BASOPHILS % (AUTO) 1.3 % (0-1); EOSINOPHILS # (AUTO) 0.2 X10'3 (0-0.9); HEMATOCRIT 36.8 % (35.0-45.0); HEMOGLOBIN 12.5 g/dl (12.0-16.0); LYMPHOCYTES # (AUTO) 1.7 X10'3 (1.1-4.8); LYMPHOCYTES % (AUTO) 17.7 % (21-51); MEAN CORPUSCULAR HEMOGLOBIN 30.6 PG (27.0-31.0); MEAN PLATELET VOLUME 8.2 FL (7.4-10.4); MONOCYTES # (AUTO) 0.5 X10'3 (0-0.9); MONOCYTES % (AUTO) 5.5 % (2-12); NEUTROPHILS # (AUTO) 7.2 X10'3 (1.8-7.7); NEUTROPHILS % (AUTO) 73.5 % (42-75); PLATELET COUNT 207 X10'3 (140-440); RED BLOOD COUNT 4.09 X10'6 (4.20-5.60); RED CELL DISTRIBUTION WIDTH 12.6 % (11.5-14.5); WHITE BLOOD COUNT 9.8 X10'3 (4.5-11.0)
[2020-07-27 15:47] LABS: ALANINE AMINOTRANSFERASE 26 U/L (12-78); ALBUMIN 3.3 G/DL (3.4-5.0); ALBUMIN/GLOBULIN RATIO 1.1 (1.1-1.5); ALKALINE PHOSPHATASE 96 IU/L (46-116); ANION GAP 6 (8-16); ASPARTATE AMINO TRANSFERASE 23 U/L (10-37); BILIRUBIN,TOTAL 0.3 MG/DL (0.1-1.0); BLOOD UREA NITROGEN 21 MG/DL (7-18); BUN/CREATININE RATIO 19.8 (6.6-38.0); CALCIUM 9.1 MG/DL (8.5-10.1); CHLORIDE 102 MMOL/L (99-107); CREATININE 1.06 MG/DL (0.40-0.90); GLUCOSE 105 MG/DL (70-104); POTASSIUM 3.4 MMOL/L (3.5-5.1); SODIUM 138 MMOL/L (135-145); TOTAL CARBON DIOXIDE 30.5 MMOL/L (24-32); TOTAL PROTEIN 6.4 G/DL (6.4-8.2); eGFR 53 ML/MIN
[2020-07-27] MEDS ORDERED: enoxaparin 100mg/ml syringe SUBCUT ONE ×2 (15:55→16:00)
[2020-07-27] MEDS ORDERED: TRAZ-256 PO (15:56)
[2020-07-27] MEDS ORDERED: enoxaparin 30mg/0.3ml syringe SUBCUT ONE ×2 (16:00)
[2020-07-27] MEDS ORDERED: INSULIN ASPART 1 UNIT SQ SCH (17:10)
[2020-07-27] MEDS ORDERED: baclofen 10mg tablet PO PRN (17:10)
[2020-07-27] MEDS ORDERED: SUMAtriptan 25 MG tablet PO PRN (17:10)
[2020-07-27] MEDS ORDERED: ondansetron/PF 4mg/2ml inj IV PRN (17:20)
[2020-07-27] MEDS ORDERED: dextrose ORAL solution 15 GM/59 ML bottle PO PRN ×4 (17:20)
[2020-07-27] MEDS ORDERED: morphine 2 MG/ML inj. syringe IV PRN (17:20)
[2020-07-27] MEDS ORDERED: dextrose 50%-water 50ml dispensing syringe IV PRN ×4 (17:20)
[2020-07-27] MEDS ORDERED: insulin Lispro (HumaLOG) vial - multi-dose SQ SCH ×2 (17:20)
[2020-07-27] MEDS ORDERED: magnesium 4gm in 100ml NS 100 ML IV PRN (17:20)
[2020-07-27] MEDS ORDERED: potassium CL 10mEq/100ml bag 100 ML IV PRN ×2 (17:20)
[2020-07-27] MEDS ORDERED: MESSAGE TO PHARMACY PO ONE ×2 (17:20)
[2020-07-27] MEDS ORDERED: magnesium Cl slow-release 64mg tablet PO PRN (17:20)
[2020-07-27] MEDS ORDERED: potassium Cl 20 mEq SR tablet PO PRN (17:20)
[2020-07-27] MEDS ORDERED: magnesium 2GM in 50ml NS 50 ML IV PRN (17:20)
[2020-07-27] MEDS ORDERED: glucagon, human recombinant 1mg kit SUBCUT PRN ×2 (17:20)
[2020-07-27 17:45] LABS: CLARITY,URINE SLIGHTLY CLOUDY (Clear); COLOR,URINE STRAW (Yellow); GLUCOSE, URINE NEGATIVE (Neg); KETONES,URINE NEGATIVE (Neg); LEUKOCYTE ESTERASE ,URINE NEGATIVE (Neg); NITRITES, URINE NEGATIVE (Neg); OCCULT BLOOD,URINE TRACE-INTACT (Neg); PH,URINE 7.5 (4.8-8.0); PROTEIN,URINE NEGATIVE (Neg); UROBILINOGEN,URINE 0.2 E.U/dL (0.2-1.0)
[2020-07-27 17:46] LABS: UA COLLECTION TYPE CLN CATCH MIDSTREAM
[2020-07-27 17:54] LABS: BACTERIA,URINE 3+ /HPF (Neg); RBC,URINE 0-2 /HPF (0-2); SQUAMOUS EPITHELIAL CELL,UR FEW /LPF (FEW)
[2020-07-27 18:00] VITALS: BP 173/88
--- NOTE | 2020-07-27 18:00 | NUR ---
Patient in room MED 310. I have received report from Marlen MCLAUGHLIN and had the opportunity to ask questions and assume patient care.
[2020-07-27] MEDS ORDERED: K and/or MAG REPLACEMENT MC SCH (20:00)
[2020-07-27] MEDS ORDERED: PEG 400/HYPROMELLOSE/GLYCERIN 15ml bottle EACHEYE PRN (20:00)
[2020-07-27] MEDS: heparin, porcine 5000 units/ml vial SQ SCH (20:00)
[2020-07-27] MEDS: oxybutynin 5mg tablet PO SCH (20:55)
[2020-07-27] MEDS: cloNIDine 0.1 mg tablet PO SCH (20:55)
[2020-07-27] MEDS: ROPINIRole 1mg tablet PO SCH (20:55)
[2020-07-27] MEDS: sucralfate 1 gm tablet PO SCH (20:56)
[2020-07-27] MEDS: docusate sod 100mg capsule PO SCH (20:56)
[2020-07-27] MEDS: gabapentin 300mg capsule PO SCH (20:57)
[2020-07-27] MEDS: busPIRone 5mg tablet PO SCH (20:57)
[2020-07-27] MEDS: potassium Cl 20 mEq SR tablet PO PRN (20:58)
[2020-07-27] MEDS: meclizine 12.5mg tablet PO SCH (20:58)
[2020-07-27] MEDS ORDERED: traZODone 150mg tablet PO SCH (21:00)
[2020-07-27] MEDS ORDERED: traZODone 50mg tablet PO SCH ×2 (21:00)
[2020-07-27] MEDS ORDERED: DESMOPRESSIN ACETATE 0.1 MG TABLET PO SCH (21:00)
[2020-07-27] MEDS ORDERED: pravastatin 40mg tablet PO SCH (21:00)
[2020-07-27] MEDS ORDERED: insulin glargine (Lantus) pen - multi-dose SQ SCH ×2 (21:00)
[2020-07-27 22:00] VITALS: BP 170/90
[2020-07-27] MEDS: gemfibrozil 600mg tablet PO SCH (22:36)
[2020-07-27] MEDS: oxyCODONE IR 5mg (immed. release) tablet PO PRN (22:45)
[2020-07-28] VITALS (15 sets, daily range): BP systolic 130–183; BP diastolic 75–91
[2020-07-28] MEDS: potassium Cl 20 mEq SR tablet PO PRN (03:30)
[2020-07-28 04:08] LABS: BASOPHILS # (AUTO) 0.1 X10'3 (0-0.2); BASOPHILS % (AUTO) 0.9 % (0-1); EOSINOPHILS # (AUTO) 0.1 X10'3 (0-0.9); EOSINOPHILS % (AUTO) 1.3 % (0-6); HEMATOCRIT 37.4 % (35.0-45.0); HEMOGLOBIN 12.5 g/dl (12.0-16.0); LYMPHOCYTES # (AUTO) 1.8 X10'3 (1.1-4.8); LYMPHOCYTES % (AUTO) 19.1 % (21-51); MEAN CORPUSCULAR HEMOGLOBIN 30.4 PG (27.0-31.0); MEAN CORPUSCULAR HGB CONC 33.5 g/dL (33.0-36.5); MEAN CORPUSCULAR VOLUME 90.6 FL (78-98); MEAN PLATELET VOLUME 8.2 FL (7.4-10.4); MONOCYTES # (AUTO) 0.4 X10'3 (0-0.9); MONOCYTES % (AUTO) 4.8 % (2-12); NEUTROPHILS # (AUTO) 6.8 X10'3 (1.8-7.7); NEUTROPHILS % (AUTO) 73.9 % (42-75); PLATELET COUNT 174 X10'3 (140-440); RED BLOOD COUNT 4.13 X10'6 (4.20-5.60); RED CELL DISTRIBUTION WIDTH 12.5 % (11.5-14.5); WHITE BLOOD COUNT 9.3 X10'3 (4.5-11.0)
[2020-07-28 04:22] LABS: ALBUMIN 3.3 G/DL (3.4-5.0); ANION GAP 5 (8-16); BLOOD UREA NITROGEN 20 MG/DL (7-18); BUN/CREATININE RATIO 18.9 (6.6-38.0); CHLORIDE 106 MMOL/L (99-107); CREATININE 1.06 MG/DL (0.40-0.90); GLUCOSE 147 MG/DL (70-104); MAGNESIUM 2.1 MG/DL (1.5-2.4); POTASSIUM 3.8 MMOL/L (3.5-5.1); SODIUM 140 MMOL/L (135-145); TOTAL CARBON DIOXIDE 29.2 MMOL/L (24-32); eGFR 53 ML/MIN
[2020-07-28] MEDS: oxyCODONE IR 5mg (immed. release) tablet PO PRN ×2 (06:59→15:00)
[2020-07-28] MEDS: sucralfate 1 gm tablet PO SCH ×3 (07:18→16:53)
[2020-07-28] MEDS: busPIRone 5mg tablet PO SCH ×2 (07:18→14:56)
[2020-07-28] MEDS: meclizine 12.5mg tablet PO SCH ×2 (07:18→14:56)
[2020-07-28] MEDS: oxybutynin 5mg tablet PO SCH ×2 (07:19→14:56)
[2020-07-28] MEDS: ROPINIRole 1mg tablet PO SCH (07:21)
[2020-07-28] MEDS: gabapentin 300mg capsule PO SCH ×2 (07:21→14:56)
[2020-07-28] MEDS: gemfibrozil 600mg tablet PO SCH (07:21)
[2020-07-28] MEDS: heparin, porcine 5000 units/ml vial SQ SCH (07:22)
[2020-07-28] MEDS: docusate sod 100mg capsule PO SCH (07:22)
[2020-07-28] MEDS: acetaminophen 325mg tablet PO PRN ×2 (07:40→16:45)
[2020-07-28] MEDS: cloNIDine 0.1 mg tablet PO SCH ×2 (07:41→14:55)
[2020-07-28] MEDS ORDERED: buPROPion SR 150mg tablet PO SCH (08:00)
[2020-07-28] MEDS ORDERED: duloxetine 30mg CAPSULE.DR PO SCH (08:00)
[2020-07-28] MEDS ORDERED: calcium carbonate/vitamin D3 tablet PO SCH (08:00)
[2020-07-28] MEDS ORDERED: amLODIPine 5mg tablet PO SCH (08:00)
[2020-07-28] MEDS ORDERED: furosemide 40mg/4ml inj IV SCH (08:00)
[2020-07-28] MEDS ORDERED: SYNTHROID PO SCH (08:00)
[2020-07-28] MEDS ORDERED: losartan 50mg tablet PO SCH (08:00)
[2020-07-28] MEDS ORDERED: aspirin 81mg tablet.DR PO SCH (08:00)
[2020-07-28] MEDS ORDERED: pantoprazole 40mg Tablet.DR PO SCH (08:00)
--- NOTE | 2020-07-28 08:00 | NUR ---
Pt reported to nurse that she took her synthroid this morning, she had bottle in purse and nurse verified dose. Nurse instructed pt that whils she is her thatr we should give it and meds can be stored in pharmacy for that purpose. She stated understanding and stated she will give to nurse should she havew to spend another night.
[2020-07-28] MEDS ORDERED: aminophylline 250mg/10ml inj. IV PRN (08:30)
[2020-07-28] MEDS ORDERED: nitroGLYCERIN 0.4mg SUBLingual tab SL PRN (08:30)
[2020-07-28] MEDS ORDERED: regadenoson 0.4mg/5ml syringe IV ONE (08:30)
[2020-07-28] MEDS ORDERED: metoprolol tartrate 1mg/ml inj IV PRN (08:30)
--- NOTE | 2020-07-28 08:45 | NUR ---
DR. SAWYER PAGED: PAGER ID: [phone] MESSAGE: 310: Medina - prev stress test done 6 weeks ago = neg; repeat Conchita still? nurse Shweta [id number]
[2020-07-28] MEDS ORDERED: LIDOcaine 1% (10mg/ml)w/preservative injection 20ml MDV ONE (11:27)
[2020-07-28] MEDS ORDERED: verapamil 2.5 mg/ml inj IV ONE (11:27)
[2020-07-28] MEDS ORDERED: iohexol 350MG/ML 100ml bottle IV ONE (11:27)
[2020-07-28] MEDS ORDERED: iohexol 350 MG/ML 50ML vial IV ONE ×2 (11:27→12:31)
[2020-07-28] MEDS ORDERED: midazolam 2 mg/2 ml injection ONE (11:27)
[2020-07-28] MEDS ORDERED: nitroGLYCERIN-Tridil 50MG/D5W 250 ML IV ONE (11:27)
[2020-07-28] MEDS ORDERED: heparin 1,000unit/ml 10ml vial 10 ML ONE (11:27)
[2020-07-28] MEDS ORDERED: fentaNYL/PF 50MCG/1 ML 2ML syringe ONE (11:27)
--- NOTE | 2020-07-28 12:00 | NUR ---
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
[2020-07-28] MEDS ORDERED: normal saline 1000ml 1,000 ML IV ONE (13:40)
--- NOTE | 2020-07-28 15:15 | NUR ---
DM consult: Pt with A1c 6.3%, DM education not warranted at this time. Will continue to follow and provide full nutrition assessment 08/01. Addendum: 07/28/20 at [address] Amended: Links added.
--- NOTE | 2020-07-28 16:57 | NUR ---
dr. syed: PAGER ID: [phone] MESSAGE: 310: NGUYỄN - balbina (-), ok to D/C? no ride available post 1999 (8pm). nurse Pepper [phone]
--- NOTE | 2020-07-28 18:30 | NUR ---
Patient in room MED 310. I have received report from Bravo, and had the opportunity to ask questions and assume patient care.
--- NOTE | 2020-07-28 19:00 | NUR ---
The patient discharged at 1900. All the discharge paper handed to the patient. Patient alert, oriented x4. Not at any distress. The IV taken out. She was informed to follow up with her doctors. All questions were answered.
== END 2020-07-28 19:00 | disposition home or self-care (01) | DRG 282 ==
LOC: ER 14:44 → ED HOLD 17:19 → OBSVTOIN 17:19 → MED 3N 19:10
PROVIDERS: ADMIT Internal Medicine; ATTEND Internal Medicine
PROC: 4A023N7 Measurement of Cardiac Sampling and Pressure, Left Heart, Percutaneous Approach (ICD-10-PCS; principal; 2020-07-28)
PROC: B2111ZZ Fluoroscopy of Multiple Coronary Arteries using Low Osmolar Contrast (ICD-10-PCS; 2020-07-28)
PROC: B2151ZZ Fluoroscopy of Left Heart using Low Osmolar Contrast (ICD-10-PCS; 2020-07-28)
DX: I21.4 Non-ST elevation (NSTEMI) myocardial infarction (principal); E11.42 Type 2 diabetes mellitus with diabetic polyneuropathy; E66.9 Obesity, unspecified; E78.00 Pure hypercholesterolemia, unspecified; E78.5 Hyperlipidemia, unspecified; F32.9 Major depressive disorder, single episode, unspecified; F41.9 Anxiety disorder, unspecified; G25.81 Restless legs syndrome; G43.909 Migraine, unspecified, not intractable, without status migrainosus; I10 Essential (primary) hypertension; E03.9 Hypothyroidism, unspecified; G89.29 Other chronic pain; G47.30 Sleep apnea, unspecified; I89.0 Lymphedema, not elsewhere classified; R32 Unspecified urinary incontinence; Z60.2 Problems related to living alone; M25.473 Effusion, unspecified ankle; J44.9 Chronic obstructive pulmonary disease, unspecified; K21.9 Gastro-esophageal reflux disease without esophagitis; M19.90 Unspecified osteoarthritis, unspecified site; M79.7 Fibromyalgia; Z79.4 Long term (current) use of insulin; Z79.890 Hormone replacement therapy; Z90.710 Acquired absence of both cervix and uterus; Z88.0 Allergy status to penicillin; Z88.5 Allergy status to narcotic agent; Z88.8 Allergy status to other drugs, medicaments and biological substances; Z79.899 Other long term (current) drug therapy; Z68.36 Body mass index [BMI] 36.0-36.9, adult
CPT/HCPCS: 36415; 71045; 76937; 80048; 80053; 81001; 82948; 83735; 83880; 84484; 85025; 87081; 87088; 93005; 93308; 93458; 99152; 99153; 99285; A4620; C1769; C1894; G0378; J1644; J1650; J1815; J1940; J2001; J2250; J3010; J3490; J7030; J8597; Q9967

== ENCOUNTER 2021-01-19 15:40 | Emergency (ER) | payer BC, MEDICAID ==
[~2021-01-19] VITALS: Ht 172.7 cm; Wt 106.6 kg
[~2021-01-19 15:40] MED LIST changes: +BUPR-317 PO; -BUPR150T6 PO; -LABE200T5 PO; -MECL-184 PO; +MECL-231 PO; -METF-795 PO; +METF-880 PO; -NIFE-34 PO; -TRAZ-251 PO; +TRAZ-256 PO
[2021-01-19 15:48] VITALS: BP 98/71
== END 2021-01-19 19:58 | disposition left against medical advice (07) ==
LOC: ER 15:40
DX: M79.672 Pain in left foot (principal); Z53.21 Procedure and treatment not carried out due to patient leaving prior to being seen by health care provider

== ENCOUNTER 2021-10-08 09:55 | Emergency (ER) | payer MEDICARE, MEDICAID ==
[~2021-10-08] VITALS: Ht 172.7 cm; Wt 104.0 kg
[~2021-10-08 09:55] MED LIST changes: -ASPI-611 PO; -BACL10TA2 PO; -BUPR-317 PO; +BUPR-344 PO; +BUPR2TAB11 SL; -CALC1TAB97 PO; -CARB15DR82 EACHEYE; -DESM0.1T24 PO; -GABA-534 PO; -GEMF600T89 PO; +LABE100T5 PO; -LACT10SO67 PO; +MAGN100T6 PO; -MECL-231 PO; +MULT-1085 PO; +OMEG1CAP21 PO; -OXYB5TAB16 PO; -OXYC15TA PO; -PRAV40TA3 PO; -ROPI2TAB7 PO; -SUCR1TAB PO; -SUMA100T16 PO
[2021-10-08 10:01] VITALS: BP 184/127
== END 2021-10-08 10:53 | disposition home or self-care (01) ==
LOC: ER 09:55
DX: G47.00 Insomnia, unspecified (principal); G47.419 Narcolepsy without cataplexy; E66.9 Obesity, unspecified; E78.00 Pure hypercholesterolemia, unspecified; I10 Essential (primary) hypertension; J44.9 Chronic obstructive pulmonary disease, unspecified; G47.30 Sleep apnea, unspecified; E11.9 Type 2 diabetes mellitus without complications; M79.7 Fibromyalgia; Z87.81 Personal history of (healed) traumatic fracture; Z98.891 History of uterine scar from previous surgery; Z90.710 Acquired absence of both cervix and uterus; Z88.1 Allergy status to other antibiotic agents; Z88.2 Allergy status to sulfonamides; Z88.8 Allergy status to other drugs, medicaments and biological substances; Z88.0 Allergy status to penicillin; Z79.4 Long term (current) use of insulin; Z79.899 Other long term (current) drug therapy; Z68.34 Body mass index [BMI] 34.0-34.9, adult; Z91.048 Other nonmedicinal substance allergy status
CPT/HCPCS: 99282

== ENCOUNTER 2022-01-12 05:19 | Day surgery (SDC) | payer MEDICARE, MEDICAID ==
[2022-01-08 16:28] LABS: BASOPHILS # (AUTO) 0.1 X10'3 (0-0.2); BASOPHILS % (AUTO) 0.6 % (0-1); EOSINOPHILS # (AUTO) 0.3 X10'3 (0-0.9); EOSINOPHILS % (AUTO) 1.7 % (0-6); LYMPHOCYTES # (AUTO) 2.4 X10'3 (1.1-4.8); LYMPHOCYTES % (AUTO) 14.2 % (21-51); MEAN CORPUSCULAR HEMOGLOBIN 29.4 PG (27.0-31.0); MEAN CORPUSCULAR HGB CONC 33.4 g/dL (33.0-36.5); MONOCYTES % (AUTO) 5.9 % (2-12); NEUTROPHILS % (AUTO) 77.6 % (42-75); PRE OP HEMATOCRIT 38.5 % (35.0-45.0); PRE OP HEMOGLOBIN 12.9 g/dL (12.0-16.0); PRE OP PLATELET COUNT 278 X10'3 (140-440); RED BLOOD COUNT 4.38 X10'6 (4.20-5.60); RED CELL DISTRIBUTION WIDTH 14.1 % (11.5-14.5)
[2022-01-08 16:46] LABS: ALBUMIN 3.6 G/DL (3.4-5.0); ALKALINE PHOSPHATASE 108 IU/L (46-116); BLOOD UREA NITROGEN 25 MG/DL (7-18); BUN/CREATININE RATIO 20.7 (6.6-38.0); CALCIUM 9.2 MG/DL (8.5-10.1); CHLORIDE 103 MMOL/L (99-107); CREATININE 1.21 MG/DL (0.40-0.90); PRE OP ALT 61 U/L (30-65); PRE OP ANION GAP 9 (8-16); PRE OP AST 34 U/L (10-37); PRE OP BILIRUB, TOTAL 0.2 MG/DL (0.0-1.0); PRE OP GLUCOSE 142 MG/DL (70-104); PRE OP POTASSIUM 4.1 MMOL/L (3.4-5.1); PRE OP SODIUM 142 MMOL/L (135-145); TOTAL CARBON DIOXIDE 29.9 MMOL/L (24-32); TOTAL PROTEIN 7.1 G/DL (6.4-8.2); eGFR 46 ML/MIN
[2022-01-08 17:02] LABS: CLARITY,URINE CLOUDY (Clear); COLOR,URINE YELLOW (Yellow); GLUCOSE, URINE NEGATIVE (Neg); KETONES,URINE TRACE mg/dl (Neg); LEUKOCYTE ESTERASE ,URINE TRACE (Neg); NITRITES, URINE NEGATIVE (Neg); OCCULT BLOOD,URINE NEGATIVE (Neg); PH,URINE 5.5 (4.8-8.0); PROTEIN,URINE NEGATIVE (Neg); UROBILINOGEN,URINE 0.2 E.U/dL (0.2-1.0)
[2022-01-08 17:07] LABS: UA COLLECTION TYPE CLN CATCH MIDSTREAM
[2022-01-08 17:08] LABS: BACTERIA,URINE 1+ /HPF (Neg); SQUAMOUS EPITHELIAL CELL,UR MANY /LPF (FEW)
[2022-01-08 17:09] LABS: RBC,URINE 0-2 /HPF (0-2)
[~2022-01-12] VITALS: Ht 165.1 cm; Wt 115.7 kg
[2022-01-12] VITALS (11 sets, daily range): BP systolic 107–155; BP diastolic 68–88
[~2022-01-12 05:19] MED LIST changes: -BUPR2TAB11 SL; +INSU100I29 SQ; -INSU100V9 SQ; -IRBE300T18 PO; -LANTUS SQ; -MAGN100T6 PO; +METH10005 PEG; +NALO4SPR BOTHNARES; -OMEG1CAP21 PO; +SUCR1TAB PO; -TRAZ-256 PO; +[UNRECOGNIZED DRUG - CODE]; +ringers solution, lacted 1,000 ML IV SCH
[2022-01-12] MEDS ORDERED: DOCUMENT DATE & TIME OF BETA-BLOCKER PO ONE (05:30)
[2022-01-12] MEDS ORDERED: famotidine 20mg tablet PO ONE (05:30)
[2022-01-12] MEDS ORDERED: clindamycin-Cleocin 900mg/D5W 50 ML IV ONE (05:30)
[2022-01-12] MEDS ORDERED: bacitracin 15gm ointment TP ONE (06:48)
[2022-01-12] MEDS ORDERED: sevoflurane 250ml liquid IH ONE (07:12)
[2022-01-12] MEDS ORDERED: FENTANYL CITRATE/PF 50 MCG/1 ML VIAL ONE (07:16)
[2022-01-12] MEDS ORDERED: MIDAZolam 1 MG/ML 5ML VIAL ONE (07:17)
[2022-01-12] MEDS ORDERED: ROPIVAcaine 0.5% (5mg/ml) 30ml vial ONE (07:40)
[2022-01-12] MEDS ORDERED: LIDOcaine 2% (20mg/ml) 5ml vial ONE (07:41)
[2022-01-12] MEDS ORDERED: dexamethasone sod phosphate 4mg/ml inj. ONE (07:41)
[2022-01-12] MEDS ORDERED: propofol inj 20 ML IV ONE (07:41)
[2022-01-12] MEDS ORDERED: ringers solution, lacted 1,000 ML IV SCH (08:15)
[2022-01-12] MEDS ORDERED: meperidine/PF 25mg/ml syringe IV PRN ×2 (08:15)
[2022-01-12] MEDS ORDERED: acetaminophen 1,000mg/100ml IV 100 ML IV ONE (09:16)
--- NOTE | 2022-01-12 09:22 | NUR ---
Received from OR via RUTHANN, accompanied by Anesthesiologist DR PANG and report given by Anesthesiologist AND PRIMER INSERTING MACHINE ADJUSTER. PT DROWSY, DENEIS PAIN, LEFT LEG FROM BELOW KNEE TO TIP OF TOES W/LEG BRACE COVERING INCISION/DRSG CDI. GREATER TOE W/STITCH CDI, 2ND AND 3RD TOES W/PINS IN PLACE. Addendum: 01/12/22 at 0955 by Palmira Lanier RN Amended: Links added.
--- NOTE | 2022-01-12 10:52 | NUR ---
PATIENT MEETS DISCHARGE DRITERIA. [place]OD IV DC'D NO COMPLICATIONS. DISCHARGE INSTRUCTIONS GIVEN AND GONE OVER WITH PATIENT, PATIENT VERBALIZES AN UNDERSTANDING OF DC INSTRUCTIONS. PATIENT UP WITH WALKER, ABLE TO SAFELY PIVOT TO WHEELCHAIR. PATIENT DC'D TO HOME VIA WHEELCHAIR TO [facility] WITH BELONGINGS, WITH NO INCIDENT. Addendum: 01/12/22 at 1109 by Palmira Lanier RN Amended: Links added.
== END 2022-01-12 10:52 | disposition home or self-care (01) ==
LOC: PAS 05:19
PROVIDERS: ATTEND Podiatrist Foot & Ankle Surgery
DX: M21.6X2 Other acquired deformities of left foot (principal); M20.32 Hallux varus (acquired), left foot; M20.42 Other hammer toe(s) (acquired), left foot; M24.575 Contracture, left foot; L97.528 Non-pressure chronic ulcer of other part of left foot with other specified severity; G89.18 Other acute postprocedural pain; G47.30 Sleep apnea, unspecified; F32.A Depression, unspecified; F41.9 Anxiety disorder, unspecified; M19.90 Unspecified osteoarthritis, unspecified site; G89.29 Other chronic pain; E66.01 Morbid (severe) obesity due to excess calories; Z68.41 Body mass index [BMI] 40.0-44.9, adult; I10 Essential (primary) hypertension; K21.9 Gastro-esophageal reflux disease without esophagitis; Z98.890 Other specified postprocedural states; Z90.710 Acquired absence of both cervix and uterus; Z98.51 Tubal ligation status; Z87.891 Personal history of nicotine dependence; Z87.442 Personal history of urinary calculi; Z79.899 Other long term (current) drug therapy; Z88.0 Allergy status to penicillin; Z88.8 Allergy status to other drugs, medicaments and biological substances; Z88.5 Allergy status to narcotic agent; Z91.09 Other allergy status, other than to drugs and biological substances; Z20.822 Contact with and (suspected) exposure to COVID-19; Z82.49 Family history of ischemic heart disease and other diseases of the circulatory system; Z83.3 Family history of diabetes mellitus
CPT/HCPCS: 28270; 28285; 28760; 28825; 36415; 64447; 64450; 73620; 76000; 80053; 81001; 82948; 85025; 87635; 93005; A6223; C1713; C9803; J0131; J1100; J2250; J2704; J2795; J3010; J3490; J7030; J7120; L4360; Z7506; Z7508; Z7512; A4618; A6449; A7000

== ENCOUNTER 2023-01-12 08:15 | Emergency (ER) | payer MEDICARE, MEDICAID ==
[~2023-01-12] VITALS: Ht 172.7 cm; Wt 119.1 kg
[~2023-01-12 08:15] MED LIST changes: -LABE100T5 PO; +LABE100T8 PO; -METH10005 PEG; -ringers solution, lacted 1,000 ML IV SCH
[2023-01-12 09:30] VITALS: BP 147/97
== END 2023-01-12 10:12 | disposition home or self-care (01) ==
LOC: ER 08:15
DX: I10 Essential (primary) hypertension (principal); R51.9 Headache, unspecified; E78.00 Pure hypercholesterolemia, unspecified; J44.9 Chronic obstructive pulmonary disease, unspecified; G47.30 Sleep apnea, unspecified; E11.9 Type 2 diabetes mellitus without complications; M79.7 Fibromyalgia; F32.9 Major depressive disorder, single episode, unspecified; Z90.710 Acquired absence of both cervix and uterus; Z98.890 Other specified postprocedural states; Z88.0 Allergy status to penicillin; Z88.1 Allergy status to other antibiotic agents; Z88.5 Allergy status to narcotic agent; Z88.2 Allergy status to sulfonamides; Z79.4 Long term (current) use of insulin; Z79.899 Other long term (current) drug therapy
CPT/HCPCS: 99281

== ENCOUNTER 2024-10-13 12:17 | Emergency (ER) | payer MEDICARE, MEDICAID ==
[~2024-10-13] VITALS: Ht 172.7 cm; Wt 114.6 kg
[~2024-10-13 12:17] MED LIST changes: -DICL100G30 TP; +DICL100G59 TP; +METF-1142 PO; -METF-880 PO
[2024-10-13 12:33] VITALS: BP 169/91; PULSE 68; RESP 18; O2SAT 97
[2024-10-13 14:18] VITALS: TEMP 97.6
== END 2024-10-13 14:20 | disposition home or self-care (01) ==
LOC: ER 12:18
DX: S01.312A Laceration without foreign body of left ear, initial encounter (principal); E78.00 Pure hypercholesterolemia, unspecified; I10 Essential (primary) hypertension; G47.30 Sleep apnea, unspecified; E11.9 Type 2 diabetes mellitus without complications; M79.7 Fibromyalgia; J45.909 Unspecified asthma, uncomplicated; J44.9 Chronic obstructive pulmonary disease, unspecified; F32.A Depression, unspecified; Z90.710 Acquired absence of both cervix and uterus; Z88.0 Allergy status to penicillin; Z88.1 Allergy status to other antibiotic agents; Z88.2 Allergy status to sulfonamides; Z88.5 Allergy status to narcotic agent; Z88.8 Allergy status to other drugs, medicaments and biological substances; Z79.4 Long term (current) use of insulin; Z79.899 Other long term (current) drug therapy; X58.XXXA Exposure to other specified factors, initial encounter; Y93.89 Activity, other specified; Y92.89 Other specified places as the place of occurrence of the external cause; Y99.8 Other external cause status
CPT/HCPCS: 12011; 99284; A6402; Z7610; A6449

== ENCOUNTER 2024-10-19 11:52 | Emergency (ER) | payer MEDICARE, MEDICAID ==
[~2024-10-19] VITALS: Ht 172.7 cm; Wt 114.2 kg
[2024-10-19 12:51] VITALS: BP 134/76; PULSE 64; RESP 16; TEMP 97.4; O2SAT 99
== END 2024-10-19 12:52 | disposition home or self-care (01) ==
LOC: ER 11:53
DX: S01.312D Laceration without foreign body of left ear, subsequent encounter (principal); J44.9 Chronic obstructive pulmonary disease, unspecified; M79.7 Fibromyalgia; G47.30 Sleep apnea, unspecified; E11.9 Type 2 diabetes mellitus without complications; E78.00 Pure hypercholesterolemia, unspecified; I10 Essential (primary) hypertension; F32.A Depression, unspecified; Z88.0 Allergy status to penicillin; Z88.1 Allergy status to other antibiotic agents; Z88.2 Allergy status to sulfonamides; Z88.5 Allergy status to narcotic agent; Z88.8 Allergy status to other drugs, medicaments and biological substances; Z98.890 Other specified postprocedural states; Z90.710 Acquired absence of both cervix and uterus; Z79.4 Long term (current) use of insulin; W19.XXXD Unspecified fall, subsequent encounter
CPT/HCPCS: 99281

== ENCOUNTER 2024-11-15 13:29 | Observation (INO) | payer MEDICARE, MEDICAID ==
[~2024-11-15] VITALS: Ht 172.7 cm; Wt 113.4 kg
[2024-11-15 14:34] LABS: BASOPHILS # (AUTO) 0.1 X10'3 (0-0.2); BASOPHILS % (AUTO) 0.7 % (0-1); EOSINOPHILS # (AUTO) 0.2 X10'3 (0-0.9); EOSINOPHILS % (AUTO) 2.6 % (0-6); HEMOGLOBIN 16.2 g/dl (12.0-16.0); LYMPHOCYTES # (AUTO) 1.6 X10'3 (1.1-4.8); LYMPHOCYTES % (AUTO) 17.4 % (21-51); MEAN CORPUSCULAR HEMOGLOBIN 32.7 PG (27.0-31.0); MEAN CORPUSCULAR HGB CONC 33.7 g/dL (33.0-36.5); MEAN CORPUSCULAR VOLUME 97.1 FL (78-98); MEAN PLATELET VOLUME 8.4 FL (7.4-10.4); MONOCYTES # (AUTO) 0.7 X10'3 (0-0.9); MONOCYTES % (AUTO) 7.1 % (2-12); NEUTROPHILS # (AUTO) 6.8 X10'3 (1.8-7.7); NEUTROPHILS % (AUTO) 72.2 % (42-75); PLATELET COUNT 183 X10'3 (140-440); RED BLOOD COUNT 4.94 X10'6 (4.20-5.60); RED CELL DISTRIBUTION WIDTH 13.2 % (11.5-14.5); WHITE BLOOD COUNT 9.4 X10'3 (4.5-11.0)
[2024-11-15 15:50] LABS: ALBUMIN 3.6 G/DL (3.4-5.0); ANION GAP 11 (8-16); BLOOD UREA NITROGEN 24 MG/DL (7-18); BUN/CREATININE RATIO 17.1 (10.0-20.0); CALCIUM 9.5 MG/DL (8.5-10.1); CHLORIDE 108 MMOL/L (99-107); GLUCOSE 166 MG/DL (70-104); MAGNESIUM 2.3 MG/DL (1.5-2.4); POTASSIUM 5.6 MMOL/L (3.5-5.1); PRO BRAIN NATRIURETIC PEPTIDE 189 PG/ML (0-125); SODIUM 143 MMOL/L (135-145); TOTAL CARBON DIOXIDE 24.1 MMOL/L (24-32); eCRCL 43 ML/MIN; eGFR 38 ML/MIN
[2024-11-15 20:35] LABS: THYROID STIMULATING HORMONE 0.35 ulU/ml (0.34-4.50)
[2024-11-15] MEDS ORDERED: acetaminophen 325mg tablet PO PRN (20:50)
[2024-11-15] MEDS ORDERED: PERFLUTREN PROTEIN-A MICROSPHR (Optison) 0.22 MG/ML 3ML VIAL IV PRN (20:50)
[2024-11-15] MEDS ORDERED: docusate sod 100mg capsule PO PRN (20:50)
[2024-11-15] MEDS ORDERED: potassium Cl 40MEQ/1/2NS 520ml 520 ML IV PRN (20:50)
[2024-11-15] MEDS ORDERED: magnesium Cl slow-release 64mg tablet PO PRN (20:50)
[2024-11-15] MEDS ORDERED: potassium Cl 20 mEq SR tablet PO PRN ×2 (20:50)
[2024-11-15] MEDS ORDERED: magnesium sulf-water 4G/100mL 100 ML IV PRN (20:50)
[2024-11-15] MEDS ORDERED: magnesium sulf-water 2g/50mL 50 ML IV PRN (20:50)
[2024-11-15] MEDS ORDERED: mag hydrox/Alum hydrox/simeth 30ml oral suspension PO PRN (20:50)
[2024-11-15] MEDS ORDERED: magnesium hydroxide 30ml (MOM) UD suspension PO PRN (20:50)
[2024-11-15] MEDS ORDERED: nitroGLYCERIN 0.4mg SUBLingual tab SL PRN ×2 (20:50→21:00)
[2024-11-15] MEDS: acetaminophen 325mg tablet PO SCH (21:00)
[2024-11-15] MEDS ORDERED: metoprolol tartrate 1mg/ml inj IV PRN (21:00)
[2024-11-15] MEDS ORDERED: aminophylline 250mg/10ml inj. IV PRN (21:00)
[2024-11-15] MEDS: acetaminophen 325mg tablet PO ONE (21:18)
[2024-11-15] MEDS ORDERED: CLON0.1T2 PO (23:12)
[2024-11-15] MEDS ORDERED: INSU100V41 SQ (23:12)
[2024-11-15] MEDS ORDERED: SEMA1PEN3 (23:18)
[2024-11-15] MEDS ORDERED: NYSPWD TP (23:24)
[2024-11-15] MEDS ORDERED: FURO-150 PO (23:26)
[2024-11-15] MEDS ORDERED: PREG150C47 PO (23:27)
[2024-11-15] MEDS ORDERED: INSU100V40 (23:30)
[2024-11-15] MEDS ORDERED: MONT-40 (23:32)
[2024-11-15] MEDS ORDERED: EMPA25TA PO (23:33)
[2024-11-15] MEDS ORDERED: CARB200C7 PO (23:34)
[2024-11-15] MEDS ORDERED: MELO-100 (23:35)
[2024-11-15] MEDS ORDERED: MIRA25TA PO (23:36)
[2024-11-15] MEDS ORDERED: MIRT7.5T11 (23:40)
[2024-11-15] MEDS ORDERED: labetalol 100mg tablet PO ONE (23:40)
[2024-11-15] MEDS ORDERED: DULO60CA65 PO (23:42)
[2024-11-15] MEDS ORDERED: ERGO500041 PO (23:43)
[2024-11-15] MEDS ORDERED: ipratropium/albuterol 3ml nebule NEB PRN (23:50)
[2024-11-16] VITALS (10 sets, daily range): BP systolic 151–184; BP diastolic 68–151; PULSE 53–97; RESP 14–18; TEMP 97.9; O2SAT 95–100
[2024-11-16] MEDS: labetalol 100mg tablet PO ONE (00:30)
[2024-11-16 03:40] LABS: BASOPHILS % (AUTO) 0.8 % (0-1); EOSINOPHILS # (AUTO) 0.2 X10'3 (0-0.9); EOSINOPHILS % (AUTO) 3.3 % (0-6); HEMATOCRIT 43.6 % (35.0-45.0); HEMOGLOBIN 14.8 g/dl (12.0-16.0); LYMPHOCYTES # (AUTO) 1.5 X10'3 (1.1-4.8); LYMPHOCYTES % (AUTO) 22.5 % (21-51); MEAN CORPUSCULAR HEMOGLOBIN 32.6 PG (27.0-31.0); MEAN PLATELET VOLUME 8.5 FL (7.4-10.4); MONOCYTES # (AUTO) 0.5 X10'3 (0-0.9); MONOCYTES % (AUTO) 8.2 % (2-12); NEUTROPHILS # (AUTO) 4.3 X10'3 (1.8-7.7); NEUTROPHILS % (AUTO) 65.2 % (42-75); PLATELET COUNT 159 X10'3 (140-440); RED BLOOD COUNT 4.54 X10'6 (4.20-5.60); RED CELL DISTRIBUTION WIDTH 12.6 % (11.5-14.5); WHITE BLOOD COUNT 6.6 X10'3 (4.5-11.0)
[2024-11-16 04:00] LABS: ALANINE AMINOTRANSFERASE 50 U/L (12-78); ALBUMIN 2.9 G/DL (3.4-5.0); ALKALINE PHOSPHATASE 111 IU/L (46-116); ANION GAP 8 (8-16); ASPARTATE AMINO TRANSFERASE 34 U/L (10-37); BILIRUBIN,TOTAL 0.3 MG/DL (0.1-1.0); BLOOD UREA NITROGEN 22 MG/DL (7-18); BUN/CREATININE RATIO 23.7 (10.0-20.0); CALCIUM 8.2 MG/DL (8.5-10.1); CHLORIDE 108 MMOL/L (99-107); CHOL/HDL RATIO 3.4 (0.00-4.99); CHOLESTEROL 194 MG/DL (0-200); CREATININE 0.93 MG/DL (0.40-0.90); GLUCOSE 179 MG/DL (70-104); HDL CHOLESTEROL 57 MG/DL (35-60); LDL CHOLESTEROL 113 MG/DL (50-100); MAGNESIUM 2.1 MG/DL (1.5-2.4); SODIUM 143 MMOL/L (135-145); TOTAL CARBON DIOXIDE 26.8 MMOL/L (24-32); TOTAL PROTEIN 5.8 G/DL (6.4-8.2); TRIGLYCERIDES 158 MG/DL (20-135); eCRCL 64 ML/MIN; eGFR 61 ML/MIN
[2024-11-16] MEDS ORDERED: BUSP10TA3 PO (04:22)
[2024-11-16] MEDS ORDERED: TEMA30CA PO (04:22)
[2024-11-16 04:25] LABS: HEMOGLOBIN A1C 7.1 % (4.5-6.2)
[2024-11-16 07:03] LABS: BILIRUBIN,URINE NEGATIVE (Neg); CLARITY,URINE CLEAR (Clear); COLOR,URINE YELLOW (Yellow); GLUCOSE, URINE >=1000 mg/dl (Neg); KETONES,URINE NEGATIVE (Neg); LEUKOCYTE ESTERASE ,URINE NEGATIVE (Neg); OCCULT BLOOD,URINE NEGATIVE (Neg); PROTEIN,URINE NEGATIVE (Neg); UROBILINOGEN,URINE 0.2 E.U/dL (0.2-1.0)
[2024-11-16 07:10] LABS: UA COLLECTION TYPE CLN CATCH MIDSTREAM
[2024-11-16 07:11] LABS: NITRITES, URINE NEGATIVE (Neg)
[2024-11-16 07:16] LABS: URINE AMPHETAMINE SCREEN NEGATIVE (Neg); URINE BARBITUATE SCREEN POSITIVE (Neg); URINE BENZODIAZEPINES SCREEN NEGATIVE (Neg); URINE CANNABINOID SCREEN NEGATIVE (Neg); URINE COCAINE SCREEN NEGATIVE (Neg); URINE METHADONE SCREEN NEGATIVE (Neg); URINE OPIATE SCREEN NEGATIVE (Neg); URINE PHENCYCLIDINE SCREEN NEGATIVE (Neg)
[2024-11-16 07:29] LABS: BACTERIA,URINE FEW /HPF (Neg); MUCUS STRANDS NONE SEEN /LPF (Neg); RBC,URINE NONE SEEN /HPF (0-2); SQUAMOUS EPITHELIAL CELL,UR FEW /LPF (FEW); WBC,URINE 0-4 /HPF (0-4); YEAST MANY /HPF (NEGATIVE)
[2024-11-16] MEDS: K and/or MAG REPLACEMENT MC SCH (08:00)
[2024-11-16] MEDS ORDERED: temazepam 15mg capsule PO PRN (08:25)
[2024-11-16] MEDS ORDERED: glucagon, human recombinant 1mg kit SUBCUT PRN (08:30)
[2024-11-16] MEDS ORDERED: DEXTROSE 15 GM of carb/4 tabs (each vial/BOTTLE has 4 tablets) PO PRN ×2 (08:30)
[2024-11-16] MEDS ORDERED: dextrose 50%-water 50ml dispensing syringe IV PRN ×2 (08:30)
[2024-11-16] MEDS: famotidine 20mg tablet PO SCH (08:59)
[2024-11-16] MEDS: INSULIN LISPRO 100 UNIT/ML INSULN.PEN MULTI-DOSE SQ SCH (09:00)
[2024-11-16] MEDS: heparin, porcine 5000 units/ml vial SQ SCH (09:01)
[2024-11-16] MEDS: LIDOcaine 5% patch TP SCH (10:15)
[2024-11-16] MEDS ORDERED: aminophylline 500mg/20ml vial IV PRN (11:42)
[2024-11-16] MEDS: regadenoson 0.4mg/5ml syringe IV PRN (12:08)
[2024-11-16] MEDS ORDERED: labetalol 100mg tablet PO SCH ×2 (13:00→14:14)
[2024-11-16] MEDS: pregabalin 75mg capsule PO SCH (13:00)
[2024-11-16] MEDS: cloNIDine 0.1 mg tablet PO SCH (13:00)
[2024-11-16] MEDS: nystatin 15 GM powder TP SCH (14:04)
[2024-11-16] MEDS: labetalol 100mg tablet PO SCH (14:15)
[2024-11-16] MEDS ORDERED: ROSU20TA98 PO (14:17)
[2024-11-16] MEDS ORDERED: carBAMazepine 100mg chewable tablet PO SCH (20:00)
[2024-11-16] MEDS ORDERED: busPIRone 5mg tablet PO SCH (20:00)
[2024-11-16] MEDS ORDERED: insulin glargine (Lantus) pen - multi-dose SQ SCH (21:00)
[2024-11-17] MEDS ORDERED: [UNRECOGNIZED DRUG - OTHER] PO SCH (07:00)
[2024-11-17] MEDS ORDERED: pantoprazole 40mg Tablet.DR PO SCH (08:00)
[2024-11-17] MEDS ORDERED: amLODIPine 5mg tablet PO SCH (08:00)
[2024-11-17] MEDS ORDERED: BUPROPION HCL 150MG XL 24 HR 150 MG TAB PO SCH (08:00)
[2024-11-17] MEDS ORDERED: EMPAGLIFLOZIN 25 MG TABLET PO SCH (08:00)
[2024-11-17] MEDS ORDERED: duloxetine 30mg CAPSULE.DR PO SCH (08:00)
[2024-11-17] MEDS ORDERED: furosemide 20MG tablet PO SCH (08:00)
[2024-11-17] MEDS ORDERED: MYRBETRIQ 25 MG PO SCH (08:00)
== END 2024-11-16 15:22 | disposition home or self-care (01) ==
LOC: ER 13:30 → INTOOBSV 19:55 → ED HOLD 19:55 → PCU 3S 11-16 07:36
PROVIDERS: ADMIT Internal Medicine Critical Care Medicine; ATTEND Internal Medicine
DX: R07.9 Chest pain, unspecified (principal); I10 Essential (primary) hypertension; E78.5 Hyperlipidemia, unspecified; E11.9 Type 2 diabetes mellitus without complications; G47.30 Sleep apnea, unspecified; I21.4 Non-ST elevation (NSTEMI) myocardial infarction; J44.9 Chronic obstructive pulmonary disease, unspecified; E66.9 Obesity, unspecified; M79.602 Pain in left arm; F41.9 Anxiety disorder, unspecified; F32.A Depression, unspecified; M79.7 Fibromyalgia; Z88.0 Allergy status to penicillin; Z88.5 Allergy status to narcotic agent; Z88.8 Allergy status to other drugs, medicaments and biological substances; Z79.4 Long term (current) use of insulin; Z90.710 Acquired absence of both cervix and uterus; Z68.38 Body mass index [BMI] 38.0-38.9, adult
CPT/HCPCS: 73060; 78452; 80048; 80053; 80061; 80305; 81001; 82948; 83036; 83735; 83880; 84443; 84484; 93005; 93017; 94760; 96372; 99285; A6212; A9500; G0378; J1815; 36415; 71045; 85025; 87081; 87088; J1644; J2785

== ENCOUNTER 2025-03-10 21:46 | Inpatient (IN) | payer MEDICARE, MEDICAID ==
[~2025-03-10] VITALS: Ht 172.7 cm; Wt 105.0 kg
[~2025-03-10 21:46] MED LIST changes: -BUSP-28 PO; +BUSP10TA3 PO; +CARB200C7 PO; -CLON-473 PO; +CLON0.1T2 PO; -DICL100G59 TP; -DOCU100C41 PO; +EMPA25TA PO; +ERGO500041 PO; +FURO-150 PO; -FURO40TA4 PO; -INSU100C4 SQ; -INSU100I29 SQ; +INSU100V40; +INSU100V41 SQ; +MELO-100; -METF-1142 PO; +MIRA25TA PO; +MIRT7.5T11; +MONT-40; -NALO4SPR BOTHNARES; +NYSPWD TP; +PREG150C47 PO; +PRIMIDONE PO; +SEMA1PEN3; -SUCR1TAB PO; +TEMA30CA PO; -[UNRECOGNIZED DRUG - CODE]
[2025-03-10 22:11] LABS: ALBUMIN 3.4 G/DL (3.4-5.0); ANION GAP 4 (8-16); BLOOD UREA NITROGEN 16 MG/DL (7-18); BUN/CREATININE RATIO 15.5 (10.0-20.0); CALCIUM 8.6 MG/DL (8.5-10.1); CHLORIDE 106 MMOL/L (99-107); CREATININE 1.03 MG/DL (0.40-0.90); GLUCOSE 111 MG/DL (70-104); SODIUM 139 MMOL/L (135-145); TOTAL CARBON DIOXIDE 28.8 MMOL/L (24-32); eCRCL 57 ML/MIN; eGFR 54 ML/MIN
--- NOTE | 2025-03-10 22:12 | ELECTROCARDIOGRAPH REPORT ---
[facility] Test Date: 2025-03-10 Test Time: 22:09:58 Pat Name: AASHISH ADRIAN Department: [facility] Patient ID: [facility]-[id number] Room: Gender: F Nut Tapper: catherine : 1965 Requested By: BULMARO SHEIKH Order Number: [id number] Reading MD: Dr. Bulmaro Sheikh Measurements Intervals [place] Rate: 55 P: 38 HI: 202 QRS: -15 QRSD: 158 T: 33 QT: 487 QTc: 466 Interpretive Statements Sinus bradycardia IVCD, consider atypical RBBB Left ventricular hypertrophy Electronically Signed On 03-10-2025 22:41:[address] Bulmaro Sheikh Please click the below link to view image of tracing.
[2025-03-10 22:13] LABS: BASOPHILS # (AUTO) 0.1 X10'3 (0-0.2); BASOPHILS % (AUTO) 0.9 % (0-1); EOSINOPHILS # (AUTO) 0.3 X10'3 (0-0.9); EOSINOPHILS % (AUTO) 4.4 % (0-6); HEMATOCRIT 41.4 % (35.0-45.0); HEMOGLOBIN 14.6 g/dl (12.0-16.0); LYMPHOCYTES # (AUTO) 1.9 X10'3 (1.1-4.8); LYMPHOCYTES % (AUTO) 26.2 % (21-51); MEAN CORPUSCULAR HEMOGLOBIN 33.7 PG (27.0-31.0); MEAN CORPUSCULAR HGB CONC 35.3 g/dL (33.0-36.5); MEAN CORPUSCULAR VOLUME 95.5 FL (78-98); MEAN PLATELET VOLUME 8.5 FL (7.4-10.4); MONOCYTES # (AUTO) 0.5 X10'3 (0-0.9); NEUTROPHILS # (AUTO) 4.5 X10'3 (1.8-7.7); NEUTROPHILS % (AUTO) 61.5 % (42-75); PLATELET COUNT 161 X10'3 (140-440); RED BLOOD COUNT 4.34 X10'6 (4.20-5.60); RED CELL DISTRIBUTION WIDTH 12.7 % (11.5-14.5); WHITE BLOOD COUNT 7.3 X10'3 (4.5-11.0)
[2025-03-10 22:16] LABS: APTT 31 SECONDS (22-32); INR 1.1 INR; PROTHROMBIN TIME 10.8 SECONDS (9.0-12.0)
--- NOTE | 2025-03-10 22:17 | Physician Documentation ---
History of Present Illness ~ Chief Complaint: Weakness Stated Complaint: STROKE Time Seen by MD: 21:55 OK to notify your PCP?: Yes Primary Medical Doctor: [facility] Source: patient, RN/MD, EMS, RN notes reviewed, EMS notes reviewed, old records Mode of Arrival: EMS Exam Limitations: clinical condition HPI 60 year old female, with reported history of two minor strokes" with no residual deficits, brought to the ED via EMS complaining of weakness that developed around 2014 this evening. Shortly after, around 2029 patient took all of her nightly medications, but then 5 minutes later took the same medications again, accidentally overdosing. 911 was called and EMS report patient seems to have right-sided upper and lower extremity weakness, facial droop, and slurred speech. Patient's medications include: Temazepam, buspirone, meloxicam, mirtazapine, clonidine, primidone, carbamazepine, and quetiapine. Medication Reconciliation Allergies: Coded Allergies: Penicillins (Verified Allergy, Mild, RASH/PRURITUS, 03/10/25) Cephalexin Monohydrate (Verified Allergy, Unknown, 03/10/25) adhesive tape (Verified Allergy, Unknown, 03/10/25) atropine (Verified Allergy, Unknown, 03/10/25) ciprofloxacin (Verified Allergy, Unknown, 03/10/25) ciprofloxacin HCl (Verified Allergy, Unknown, 03/10/25) codeine (Verified Allergy, Unknown, 03/10/25) fexofenadine HCl (Verified Allergy, Unknown, 03/10/25) fluoxetine HCl (Verified Allergy, Unknown, 03/10/25) hydromorphone HCl (Verified Allergy, Unknown, 03/10/25) meperidine HCl (Verified Allergy, Unknown, 03/10/25) morphine (Verified Allergy, Unknown, 03/10/25) niacin (Verified Allergy, Unknown, 03/10/25) norfloxacin (Verified Allergy, Unknown, 03/10/25) ondansetron HCl (Verified Allergy, Unknown, 03/10/25) prochlorperazine edisylate (Verified Allergy, Unknown, 03/10/25) prochlorperazine maleate (Verified Allergy, Unknown, 03/10/25) sulfamethoxazole (Verified Allergy, Unknown, 03/10/25) trimethoprim (Verified Allergy, Unknown, 03/10/25) hydrocodone (Unverified Adverse Reaction, Mild, 03/10/25) Scheduled Amlodipine Besylate (Amlodipine Besylate), 1 TAB PO DAILY, (Reported) Bupropion XL (Bupropion Xl), 1 TAB PO QAM, (Reported) Buspirone HCl (Buspirone HCl), 1 TAB PO Q12H, (Reported) Carbamazepine (Carbamazepine), 1 CAP PO BID, (Reported) Clonidine HCl (Clonidine HCl), 1 CAP PO TID, (Reported) Duloxetine HCl (Duloxetine HCl), 1 CAP PO DAILY, (Reported) Empagliflozin (Jardiance), 1 TAB PO DAILY, (Reported) Ergocalciferol (Vitamin D2) (Vitamin D2), 1 CAP PO Q7D, (Reported) Furosemide (Lasix), 1 TAB PO DAILY, (Reported) Labetalol Hcl (Labetalol Hcl), 20 MG PO TID, (Reported) Multivitamin (Multi Vitamin Daily), 1 TAB PO DAILY, (Reported) Pantoprazole Sodium (Pantoprazole Sodium), 1 TAB PO DAILY, (Reported) Pregabalin (Pregabalin), 1 CAP PO TID, (Reported) [Primidone], 150 MG PO DAILY, (Reported) [Primidone], 250 MG PO HS, (Reported) Scheduled PRN Temazepam (Temazepam), 1 CAP PO HSPRN PRN for sleep, (Reported) Miscellaneous Medications Meloxicam* (Meloxicam*), (Reported) Mirtazapine (Mirtazapine), (Reported) Montelukast Sodium (Montelukast Sodium), (Reported) Nystatin (NYSTOP powder), 1 APPLIC TP, (Reported) Semaglutide (Ozempic), 1 MG, (Reported) Discontinued Medications Insulin Degludec (Tresiba), 44 SQ DAILY, (Reported) Insulin Lispro (Admelog), (Reported) Levothyroxine Sodium* (Synthroid*), 1 TAB PO QAM, (Reported) Mirabegron (Myrbetriq), 1 TAB PO DAILY, (Reported) Past Medical History Past Medical History: CVA/TIA/Stroke, High Cholesterol, Hypertension, Asthma, COPD, Sleep Apnea, Diabetes, Thyroid (unspecified), Extremity Fracture, Fibromyalgia, *PSYCH*, Depression Past Surgical History: , hysterectomy Alcohol Use: None Drug Use: none Lives with: Family Lives In: Home Occupation: disabled Review of Systems All Other Systems at this time: Reviewed and Negative ROS As stated above in the HPI, otherwise all systems are reviewed and negative. Physical Exam Vital Signs: RN Vital Signs have been reviewed: Yes, Heart Rate: 58, Respiratory Rate: 16, BP: 126/76, Pulse Oximetry: 97, Weight: 105.000 Pulse Oximetry Reflects: adequate oxygenation Physical Exam General: The patient is well developed, well nourished, nontoxic appearing and is in no acute distress. Skin: [place], warm and dry with no rashes. HEENT: Head was normocephalic and atraumatic. Chest: Clear to auscultation bilaterally without wheezes, rales or rhonchi. No accessory muscle use. No dullness to percussion. Heart: Rate regular and rhythmic. S1, S2. No murmurs. Palpation of the chest wall was normal. No rubs or thrills. Extremities: No cyanosis, clubbing or edema. The patient moves all extremities. Pulses were equal and symmetric. Neurologic: Global weakness, 1/5 strength of all four extremities, left facial droop. A&Ox4. Progress Progress Note 2314: Nurse reports patient is becoming more altered and less responsive. 2318: Hospitalist paged [phone]: Patient admitted by Dr. Mcallister, internal medicine resident. Results/Orders Reviewed/noted all lab results: Yes Results/Orders Orders - CHETNA NAVARRO MD Monitor (03/10/25 21:52) 2 Large Bore Ivs (03/10/25 21:52) Electrocardiogram (03/10/25 21:52) Chest,Single View (03/10/25 23:00) Accucheck (03/10/25 21:52) Ct Stroke Alert (03/10/25 22:10) Albin Prov.Neuro Consult (03/10/25 22:28) Page Hospitalist (03/10/25 23:18) Fill Out Med Reconciliation (03/10/25 23:18) Cta Neck/Head (03/10/25 23:50) Completed Orders - CHETNA NAVARRO MD Cbc/Diff (03/10/25 21:52) Electrocardiogram (03/10/25 21:52) Chest,Single View (03/10/25 23:00) Ct Stroke Alert (03/10/25 22:10) BMP (03/10/25 21:52) PTT (03/10/25 21:52) Pt Inr (03/10/25 21:52) Drug Screen, Urine (03/10/25 22:55) Ethanol (03/10/25 21:50) MG (03/10/25 21:50) Cta Neck/Head (03/10/25 23:50) Ua W/Microscopic, Cult If Ind (03/10/25 23:17) Laboratory Tests Test 03/10/25 21:50 03/10/25 21:55 03/10/25 23:17 White Blood Count 7.3 Red Blood Count 4.34 Hemoglobin 14.6 Hematocrit 41.4 Mean Corpuscular Volume 95.5 Mean Corpuscular Hemoglobin 33.7 H Mean Corpuscular Hemoglobin Concent 35.3 Red Cell Distribution Width 12.7 Platelet Count 161 Mean Platelet Volume 8.5 Neutrophils (%) (Auto) 61.5 Lymphocytes (%) (Auto) 26.2 Monocytes (%) (Auto) 7.0 Eosinophils (%) (Auto) 4.4 Basophils (%) (Auto) 0.9 Neutrophils # (Auto) 4.5 Lymphocytes # (Auto) 1.9 Monocytes # (Auto) 0.5 Eosinophils # (Auto) 0.3 Basophils # (Auto) 0.1 CBC Comment Prothrombin Time 10.8 INR International Normalized Ratio 1.1 Activated Partial Thromboplast Time 31 Coagulation Comments Sodium Level 139 Potassium Level 4.0 Chloride Level 106 Carbon Dioxide Level 28.8 Anion Gap 4 L Blood Urea Nitrogen 16 Creatinine 1.03 H Estimated GFR/1.73 m2 54 BUN/Creatinine Ratio 15.5 Glucose Level 111 H Calcium Level 8.6 Magnesium Level 2.1 Albumin 3.4 Chemistry Comments Ethyl Alcohol Level < 10 Glucometer 111 H Urine Specimen Description Straight cath Urine Color Yellow Urine Clarity Slightly cloudy Urine pH 6.0 Urine Specific [place] 1.015 Urine Protein Negative Urine Glucose (UA) >=1000 H Urine Ketones Negative Urine Occult Blood Negative Urine Nitrite Negative Urine Bilirubin Negative Urine Urobilinogen 0.2 Urine Leukocyte Esterase Small H Urine RBC 3-10 Urine WBC 30-50 H Urine WBC Clumps Moderate Urine Squamous Epithelial Cells Few Urine Transitional Epithelial Cells Few Urine Bacteria 1+ Urine Mucus Few Urine Culture Indicated Indicated Volume Urine Centrifuged 10 ml Urine Comment Urine Opiates Screen Negative Urine Methadone Screen Negative Urine Fentanyl Screen Positive H Urine Barbiturates Screen Positive Urine Phencyclidine Screen Negative Urine Amphetamines Screen Negative Urine Benzodiazepines Screen Positive Urine Cocaine Screen Negative Urine Cannabinoids Screen Negative Drug Screen Comment Re-Evaluation Re-Evaluation : Re-Evaluation: Improved, Unchanged Progress Patient was seen and examined. Patient was given reassurance. Stroke alert was called. IV lines x2 were established. Chest x-ray was obtained laboratory work including immediate CAT scan. He was no intracranial bleed. [facility] neurology was consulted. Later patient had a CT angiogram which did not show any large vessel occlusion. Patient was then admitted to the stroke hospitalist service for further workup and care. Patient's laboratory work shows a normal CBC coagulation was within normal limits urinalysis showed a UTI with small leukocyte esterase glucosuria greater than 1000 RBCs 3-10 WBCs 30-50 with urine WBC clumps few squamous epithelial cells 1+ bacteria tox screen was positive for fentanyl barbiturates and benzodiazepines negative alcohol chemistry was within normal limits. Patient was then admitted to the hospitalist service for further workup and care. Continuous security monitor interpretation shows normal sinus rhythm heart rate 60s, no ectopy, normal, my interpretation. Pulse oximetry monitor interpretation shows normal oxygenation at 97% room air, normal, my interpretation. 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 Chetna Navarro Measurements Intervals [place] Rate: 55 P: 38 IN: 202 QRS: -15 QRSD: 158 T: 33 QT: 487 QTc: 466 Interpretive Statements Sinus bradycardia IVCD, consider atypical RBBB Left ventricular hypertrophy Electronically Signed On 03-10-2025 22:41:[address] Chetna Navarro (interpreted by ri) Chest X-Ray : Additional Comments Clinical History Stroke Alert Comparison CXR on 11/15/2024, 1 images. Technique: single view chest Without Contrast AASHISH ADRIAN, [id number] FINDINGS: Patient is rotated for this examination. Trachea is midline, heart size normal, cardiomediastinal silhouette unremarkable. There is no evidence of pneumonia or pulmonary vascular congestion, no pneumothorax, no evidence of pleural or pericardial effusion. Osseous structures do not suggest significant abnormality on this single image. IMPRESSION: 1. Limited study as described revealing no evidence of acute/significant cardiopulmonary disease. This report was electronically signed by Rhett Hoff MD on 03/10/2025 11:38:[address] PM[address] Review[address] by me CT : Interpreted By: radiologist Impression Clinical History Stroke Alert Comparison CT HEAD on 06/14/2021, 229 images. Technique: Noncontrast CT volume data aquisition of the head viewed in axial, coronal and sagittal planes. All CT scans at this medical facility are performed using dose modulation techniques as appropriate to a performed exam including the following: Automated exposure control was utilized; adjustment of the mA and/or kV according to patient size; and use of iterative reconstruction technique. All CT studies are reported to the Dose Index Registry of the [employer]. Without Contrast Radiation Dose: CTDI (mGy): 70.07; DLP (mGy-cm): 1356.43 AASHISH ADRIAN, [id number] FINDINGS: Ventricles are of normal size, shape and position. There are no intra-axial or extra-axial collections of blood or fluid. There is no mass, mass effect or shift of midline structures. There is no CT evidence for acute ischemic infarct. MRI is more sensitive for this diagnosis. Posterior fossa structures are unremarkable. Sella and parasellar regions are unremarkable. Basal cisterns are patent. Orbits and orbital contents are unremarkable, paranasal sinuses and mastoid air cells clear, osseous structures intact. IMPRESSION: 1. No significant intracranial pathology identified on noncontrast CT 2. No evidence of intracranial hemorrhage. 3. No evidence of acute ischemic infarct. MRI is more sensitive for this diagnosis and is recommended for follow-up as clinically indicated. This report was electronically signed by Rhett Hoff MD on 03/10/2025 10:26:12 PM. The above findings were reported to Dr Navarro. The call was initiated at 03/10/2025 10:26:27 PM. Reviewed by me Medical Decision Making Additional info obtained from: old records Differential Dx:Considerations: Include: anemia, CVA, dehydration, dysrhythmia, electrolyte imbalance, encephalopathy, hypotension, hypovolemia, myocardial infarction, pulmonary embolus, TIA, VBI, other Departure Time of Disposition: 23:18 Disposition: 09 ADMITTED INPATIENT Admitted to Inpatient Unit: yes, to hospitalist Admission Level of Care: Neuro with Tele Impression: Primary Impression: Stroke Qualified Codes: I63.9 - Cerebral infarction, unspecified Additional Impressions: Metabolic encephalopathy Accidental overdose Qualified Codes: T50.901A - Poisoning by unspecified drugs, medicaments and biological substances, accidental (unintentional), initial encounter Condition: Guarded Education Educated: Patient Educated regarding: diagnosis, need for follow up Critical Care Note Total Time (mins): 33 Critical Care Note The very real possibility of a deterioration of this patient's condition required the highest level of my preparedness for sudden, emergent intervention. I provided critical care services, which included medication orders, frequent reevaluations of the patient's condition and response to treatment, ordering and reviewing test results, and discussing the case with various consultants. Excludes time spent performing separately billable procedures. The critical care time associated with the care of the patient was. 33 minutes Signature Scribe Signature: Scribed for Chetna Navarro MD by Nila Donald . 03/10/25 22:29 Attestation: The note accurately reflects work and decisions made by me.Chetna Navarro MD 03/10/25 22:16 CHETNA NAVARRO MD Mar 10, 2025 22:17 NILA ENNIS Mar 10, 2025 22:38
--- NOTE | 2025-03-10 22:28 | RADIOLOGY REPORT ---
Clinical History Stroke Alert Comparison CT HEAD on 06/14/2021, 229 images. Technique: Noncontrast CT volume data aquisition of the head viewed in axial, coronal and sagittal pl anes. All CT scans at this medical facility are performed using dose modulation techniques as appropriate t o a performed exam including the following: Automated exposure control was utilized; adjustment of th e mA and/or kV according to patient size; and use of iterative reconstruction technique. All CT studies are reported to the Dose Index Registry of the [employer]. Without Contrast Radiation Dose: CTDI (mGy): 70.07; DLP (mGy-cm): 1356.43 ADRIANAASHISH MCCAULEY, [id number] FINDINGS: Ventricles are of normal size, shape and position. There are no intra-axial or extra-axial collectio ns of blood or fluid. There is no mass, mass effect or shift of midline structures. There is no CT evidence for acute ischemic infarct. MRI is more sensitive for this diagnosis. Posterior fossa structures are unremarkable. Sella and parasellar regions are unremarkable. Basal c isterns are patent. Orbits and orbital contents are unremarkable, paranasal sinuses and mastoid air cells clear, osseous structures intact. IMPRESSION: 1. No significant intracranial pathology identified on noncontrast CT 2. No evidence of intracranial hemorrhage. 3. No evidence of acute ischemic infarct. MRI is more sensitive for this diagnosis and is recommend ed for follow-up as clinically indicated. This report was electronically signed by Rhett Hoff MD on 03/10/2025 10:26:12 PM. The above findings were reported to Dr Navarro. The call was initiated at 03/10/2025 10:26:27 PM.
--- NOTE | 2025-03-10 22:53 | [facility] CONSULT REPORT ---
[facility] Procedure Note [facility] Procedure Note Consult [facility] Note # Demographics Consult Type: Acute Stroke Level 1 (0-4.5 hrs) Patient Location: Emergency Room First Name: alber Last Name: pb Date of : 1965 Age: 60 Gender: Female Facility: [facility] Time of Initial Page (): 03/10/2025 22:43 Time of Return Call (): 03/10/2025 22:44 # HPI History: Left side weakness and facial droop and speech change tonight Says she doubled up on her nightly meds tonight Last Known Normal: 2019 pst # Scores Time of exam and NIHSS (): 03/10/2025 22:44 Level of Consciousness 1a: [2] = Not alert; requires strong or painful stim LOC Questions 1b: [0] = Answers both questions correctly LOC Commands 1c: [1] = Performs one correctly Best Gaze 2: [0] = Normal Visual 3: [0] = No visual loss Facial Palsy 4: [0] = Normal symmetrical movements Motor Arm Left 5a: [3] = No effort against gravity Motor Arm Right 5b: [3] = No effort against gravity Motor Leg Left 6a: [3] = No effort against gravity Motor Leg Right 6b: [3] = No effort against gravity Limb Ataxia 7: [0] = Absent Sensory 8: [0] = Normal Best Language 9: [1] = Wbyq-ju-sakbithv aphasia Dysarthria 10: [1] = Fxlq-jj-mxmnacbw dysarthria Extinction and Inattention 11: [0] = No abnormality NIHSS Total: 17 # Data Head CT: - no bleed - per radiologist read # Assessment Impression: - Altered Mental Status Appears somnolent and diffuse weakness. Check for toxometabolic cause including overdose. If no etiology identified and persistent deficits then MRI brain. less likely stroke if no lvo # Plan Thrombolytic/Intervention: NOT IV Thrombolysis or IA Intervention candidate Thrombolytic/Intraarterial Exclusion: - IV thrombolytic and IA intervention considered but not recommended as this patient's symptoms are not clinically consistent with an assumed diagnosis of stroke Target Blood Pressure: SBP < 180 Labs: - urine drug screen - ua - TSH - B12 - Ammonia Imaging: (urgency: STAT): - CT Angiogram Head and CT Angiogram Neck AND call back with results if abnormal Other: - If patient has any neurological deterioration please call me back immediately - I have discussed my recommendations with the referring provider - would not pursue stroke work-up if MRI is negative # Logistics Attestation of consult completion: The patient is located at: [facility]. Facility staff participated in the visit. I performed this te lemedicine visit from my offsite office utilizing interactive 2 way audio and visual telecommunication technology. Total time spent in telemedicine encounter: I spent 11 minutes reviewing clinical data and/or imaging, obtaining history, examining the patient, communicating with the onsite care team, and in preparation of this report. Critical Care time: 11 minutes of this encounter were critical care time. Due to a high probability of clinically significant, life-threatening neurologic deterioration, the patient required my highest level of preparedness to intervene emergently. I spent this critical care time managing the patient in conjunction with on-site providers who requested my consultation. In addition to the above, this critical care time included recommendation and review of studies, including imaging; arranging an urgent treatment and management plan with on-site providers; evaluation of patient's response to treatment; and documentation. This critical care time was performed to assess and manage the high probability of imminent, life-threatening deterioration that could result in neurologic catastrophe. # Demographics First Name: alber Last Name: pb Facility: [facility] Electronically signed at 03/10/2025 22:53 ([place] Time) by Elier Vaughan MD Neuro Consult Order placed for: Yes MYKE VAUGHAN MD Mar 10, 2025 22:53
[2025-03-10 23:08] LABS: MAGNESIUM 2.1 MG/DL (1.5-2.4)
[2025-03-10 23:16] LABS: ETHANOL < 10 MG/DL (<10)
[2025-03-10 23:33] LABS: BILIRUBIN,URINE NEGATIVE (Neg); CLARITY,URINE SLIGHTLY CLOUDY (Clear); COLOR,URINE YELLOW (Yellow); GLUCOSE, URINE >=1000 mg/dl (Neg); KETONES,URINE NEGATIVE (Neg); LEUKOCYTE ESTERASE ,URINE SMALL (Neg); NITRITES, URINE NEGATIVE (Neg); OCCULT BLOOD,URINE NEGATIVE (Neg); PROTEIN,URINE NEGATIVE (Neg); UROBILINOGEN,URINE 0.2 E.U/dL (0.2-1.0)
[2025-03-10 23:42] LABS: UA COLLECTION TYPE STRAIGHT CATH
--- NOTE | 2025-03-10 23:42 | RADIOLOGY REPORT ---
Clinical History Stroke Alert Comparison CXR on 11/15/2024, 1 images. Technique: single view chest Without Contrast AASHISH ADRIAN, [id number] FINDINGS: Patient is rotated for this examination. Trachea is midline, heart size normal, cardiomediastinal silhouette unremarkable. There is no evidence of pneumonia or pulmonary vascular congestion, no pneumothorax, no evidence of p leural or pericardial effusion. Osseous structures do not suggest significant abnormality on this single image. IMPRESSION: 1. Limited study as described revealing no evidence of acute/significant cardiopulmonary disease. This report was electronically signed by Rhett Hoff MD on 03/10/2025 11:38:24 PM.
[2025-03-10 23:44] LABS: BACTERIA,URINE 1+ /HPF (Neg); MUCUS STRANDS FEW /LPF (Neg); SQUAMOUS EPITHELIAL CELL,UR FEW /LPF (FEW); TRANSITIONAL EPI CELLS,URINE FEW /HPF; WBC,URINE 30-50 /HPF (0-4)
[2025-03-10 23:45] LABS: WBC CLUMPS,URINE MODERATE /HPF (NEGATIVE)
[2025-03-10] MEDS ORDERED: magnesium sulf-water 4G/100mL 100 ML IV PRN (23:45)
[2025-03-10] MEDS ORDERED: magnesium Cl slow-release 64mg tablet PO PRN (23:45)
[2025-03-10] MEDS ORDERED: mag hydrox/Alum hydrox/simeth 30ml oral suspension PO PRN (23:45)
[2025-03-10] MEDS ORDERED: potassium Cl 40MEQ/1/2NS 520ml 520 ML IV PRN (23:45)
[2025-03-10] MEDS ORDERED: acetaminophen 325mg tablet PO PRN (23:45)
[2025-03-10] MEDS ORDERED: morphine 2 MG/ML inj. syringe IV PRN ×2 (23:45)
[2025-03-10] MEDS ORDERED: magnesium sulf-water 2g/50mL 50 ML IV PRN (23:45)
[2025-03-10] MEDS ORDERED: magnesium hydroxide 30ml (MOM) UD suspension PO PRN (23:45)
[2025-03-10] MEDS ORDERED: potassium Cl 20 mEq SR tablet PO PRN ×2 (23:45)
[2025-03-10] MEDS ORDERED: ondansetron/PF 4mg/2ml inj IV PRN (23:45)
[2025-03-10 23:47] LABS: URINE AMPHETAMINE SCREEN NEGATIVE (Neg); URINE BARBITUATE SCREEN POSITIVE (Neg); URINE BENZODIAZEPINES SCREEN POSITIVE (Neg); URINE CANNABINOID SCREEN NEGATIVE (Neg); URINE COCAINE SCREEN NEGATIVE (Neg); URINE METHADONE SCREEN NEGATIVE (Neg); URINE OPIATE SCREEN NEGATIVE (Neg); URINE PHENCYCLIDINE SCREEN NEGATIVE (Neg)
[2025-03-11] VITALS (7 sets, daily range): BP systolic 112–163; BP diastolic 51–93; PULSE 54–91; RESP 10–16; TEMP 97.6–99.1; O2SAT 95–100
--- NOTE | 2025-03-11 00:08 | RADIOLOGY REPORT ---
Clinical History stroke Comparison None Technique: contrast-enhanced CT volume data acquisition of the head and neck performed for CT angiogr aphy from skull vertex to the thoracic inlet and presented in axial, coronal and sagittal planes incl uding multiple MIP series. All CT scans at this medical facility are performed using dose modulation techniques as appropriate t o a performed exam including the following: Automated exposure control was utilized; adjustment of th e mA and/or kV according to patient size; and use of iterative reconstruction technique. All CT studies are reported to the Dose Index Registry of the [employer]. Contrast: 100 ML OMNIPAQUE 350 Radiation Dose: CTDI (mGy): 37.41; DLP (mGy-cm): 605.25 ADRIANAASHISH MCCAULEY, [id number] FINDINGS: CTA NECK Aortic arch, brachiocephalic trunk and right and left subclavian arteries are unremarkable. Bilateral common carotid arteries, bilateral internal and external carotid arteries and bilateral america tebral arteries are patent with 0% stenosis by NASCET criteria. Right vertebral artery is dominant. CTA BRAIN Internal carotid arteries are patent with no evidence of significant stenosis. Anterior cerebral arteries are patent and unremarkable. Right middle cerebral artery is patent with normal distal branching pattern. Left middle cerebral artery is patent with normal distal branching pattern. Right vertebral artery is dominant, left vertebral artery of very small caliber, blood vessels patent . Basilar artery is unremarkable. Superior cerebellar and posterior cerebral arteries are unremarkable. There is no evidence of aneurysm, arteriovenous malformation or dural sinus thrombosis on this study. There is no abnormal contrast enhancement or enhancing mass lesion. Additional findings: There are no additional findings of significance. IMPRESSION: 1. CTA NECK reveals no evidence of occlusion, dissection or significant focal stenosis in the cervic al carotid and vertebral arteries. 2. CTA BRAIN reveals no evidence of large vessel occlusion, dissection or significant focal stenosis . This report was electronically signed by Rhett Hoff MD on 03/11/2025 12:05:34 AM. The above findings were reported to Dr. Navarro. The call was initiated at 03/11/2025 12:06:04 AM.
[2025-03-11] MEDS ORDERED: aspirin 325mg tablet PO ONE (02:50)
--- NOTE | 2025-03-11 03:38 | HISTORY AND PHYSICAL-Residence ---
History & Physical Providers to CC Resident Creating Document: MARKELL PERERA CC: RUPERT FELICIANO DO ~ History of Present Illness Primary Medical Doctor: [facility] Reason for Admit\\Complaint: Altered level of consciousness History of Present Illness Patient is a 60-year-old female with a history of hypertension, type 2 diabetes, JAIMIE, neuropathy, hyperlipidemia and stroke who came into the ED due to altered level of consciousness. Patient was very drowsy at the time of my examination in communication was challenging, however, she was able to wake up on and off and answer some questions. She reports that at around 8:00 p.m. today she presented with confusion, tired along with headaches. She states she called a friend who told her that her speech sounded slurred. She is not sure why but afterwards she decided to take all her medications which included temazepam, carbamazepine, labetalol, magnesium and a few additional medications that I was not able to comprehend. Allergies: Coded Allergies: Penicillins (Verified Allergy, Mild, RASH/PRURITUS, 03/10/25) Cephalexin Monohydrate (Verified Allergy, Unknown, 03/10/25) adhesive tape (Verified Allergy, Unknown, 03/10/25) atropine (Verified Allergy, Unknown, 03/10/25) ciprofloxacin (Verified Allergy, Unknown, 03/10/25) ciprofloxacin HCl (Verified Allergy, Unknown, 03/10/25) codeine (Verified Allergy, Unknown, 03/10/25) fexofenadine HCl (Verified Allergy, Unknown, 03/10/25) fluoxetine HCl (Verified Allergy, Unknown, 03/10/25) hydromorphone HCl (Verified Allergy, Unknown, 03/10/25) meperidine HCl (Verified Allergy, Unknown, 03/10/25) morphine (Verified Allergy, Unknown, 03/10/25) niacin (Verified Allergy, Unknown, 03/10/25) norfloxacin (Verified Allergy, Unknown, 03/10/25) ondansetron HCl (Verified Allergy, Unknown, 03/10/25) prochlorperazine edisylate (Verified Allergy, Unknown, 03/10/25) prochlorperazine maleate (Verified Allergy, Unknown, 03/10/25) sulfamethoxazole (Verified Allergy, Unknown, 03/10/25) trimethoprim (Verified Allergy, Unknown, 03/10/25) hydrocodone (Unverified Adverse Reaction, Mild, 03/10/25) Home Medications Home Medications Active Reported [Primidone] 250 Mg PO HS [Primidone] 150 Mg PO DAILY Temazepam 30 Mg Capsule 1 Cap PO HSPRN PRN 30 Days Buspirone HCl 10 Mg Tablet 1 Tab PO Q12H 30 Days Vitamin D2 (Ergocalciferol (Vitamin D2)) 1,250 Mcg (18180 Unit) Capsule 1 Cap PO Q7D 28 Days Duloxetine HCl 60 Mg Capsule.dr 1 Cap PO DAILY 30 Days Mirtazapine 7.5 Mg Tablet Myrbetriq (Mirabegron) 25 Mg Tab.er.24h 1 Tab PO DAILY 30 Days Meloxicam* (Meloxicam) 7.5 Mg Tablet Carbamazepine 200 Mg Cpmp.12hr 1 Cap PO BID 30 Days Jardiance (Empagliflozin) 25 Mg Tablet 1 Tab PO DAILY 30 Days Montelukast Sodium 10 Mg Tablet Admelog (Insulin Lispro) 100 Unit/Ml Vial Pregabalin 150 Mg Capsule 1 Cap PO TID MDD 2 Capsule(s) 30 Days Lasix (Furosemide) 20 Mg Tablet 1 Tab PO DAILY 30 Days NYSTOP powder (Nystatin) 100,000 Unit/Gram Gra 1 Applic TP Ozempic (Semaglutide) 1 Mg/0.75 Ml (4 Mg/3 Ml) Pen.injctr 1 Mg Labetalol Hcl 100 Mg Tablet 20 Mg PO TID Tresiba (Insulin Degludec) 100 Unit/Ml Vial 44 SQ DAILY Clonidine HCl 0.1 Mg Tablet 1 Cap PO TID Multi Vitamin Daily (Multivitamin) 1 Each Tablet 1 Tab PO DAILY 30 Days Bupropion Xl (Bupropion HCl) 300 Mg Tab.er.24h 1 Tab PO QAM 30 Days Synthroid* (Levothyroxine Sodium) 300 Mcg Tablet 1 Tab PO QAM MUST BE BRAND ONLY Amlodipine Besylate 10 Mg Tablet 1 Tab PO DAILY Pantoprazole Sodium 40 Mg Tablet.dr 1 Tab PO DAILY Past Medical History Past Medical History Hypertension, type 2 diabetes, JAIMIE, neuropathy, hyperlipidemia and stroke Past Surgical History Surgical History Comment Bladder surgery Three C sections Tubal ligation Hysterectomy Past Social History Smoking: Non-Smoker, Quit greater than 1 year Alcohol Use: None Drug Use: None Lives with: Alone Lives In: Home Occupation: disabled ROS ROS All systems were reviewed and found negative except for pertinent positives mentioned in HPI Exam Vitals: Vital Signs Date Time Temp Pulse Resp B/P (MAP) Pulse Ox O2 Delivery O2 Flow Rate FiO2 03/11/25 02:39 Nasal Cannula 2.0 03/11/25 02:29 51 03/11/25 02:00 97.7 16 149/78 (101) 100 03/10/25 22:34 28 General: General: awake, alert oriented to place, time, and person HEENT: She has a right mouth commissure droopiness. No pallor present, no icterus, moist mucous membranes Neck: No masses and tenderness Resp: Unlabored. Lungs clear to auscultation bilaterally. Heart: Regular Rate and rhythm, normal S1 and S2 without murmur, rub or gallop Abdomen: Soft and non tender no organomegaly, no guarding and rigidity, bowel sounds present Neuro: Patient was unable to raise either leg or arm against gravity. Knee reflex present bilaterally. Cranial nerves intact Extremities: No cyanosis,clubbing or edema Skin: Warm and Dry. No lesions Diagnostic Data Last Recorded Lab Results: 03/11/25 0447 03/11/25 0447 Diagnostic Data: Laboratory Tests Test 03/10/25 21:50 Prothrombin Time 10.8 SECONDS (9.0-12.0) INR International Normalized Ratio 1.1 INR Activated Partial Thromboplast Time 31 SECONDS (22-32) Coagulation Comments Advance Care Planning Advanced Care plannin - 30 Minutes Additional Plan Patient is a 60-year-old female with a history of hypertension, type 2 diabetes, JAIMIE, neuropathy, hyperlipidemia and stroke who came into the ED due to altered level of consciousness. Admitted for evaluation of possible stroke. Altered level of consciousness Toxic encephalopathy secondary to medication Possible stroke Polypharmacy Unable to obtain precise NIHSS due to patient's level of consciousness She does have a ride mouth commissure droopiness which she states was not there before Vitals are stable Tele neurology was consulted who recommended: - Appears somnolent and diffuse weakness. Check for toxometabolic cause including overdose. If no etiology identified and persistent deficits then MRI brain. less likely stroke if no lvo - Thrombolytic/Intervention: NOT IV Thrombolysis or IA Intervention candidate - Thrombolytic/Intraarterial Exclusion: - IV thrombolytic and IA intervention considered but not recommended as this patient's symptoms are not clinically consistent with an assumed diagnosis of stroke -Target Blood Pressure: SBP < 180 Labs: - urine drug screen - ua - TSH - B12 - Ammonia Imaging: (urgency: STAT): - CT Angiogram Head and CT Angiogram Neck AND call back with results if abnormal UTI tox is positive for fentanyl, barbiturates and benzodiazepines CT head and CTA head and neck showed no acute abnormalities On rounds with Dr Feliciano, patient was awake and much more responsive. Endorsed taking multiple medications to sleep. Denied taking chronic pain meds. Pending medication reconciliation. Consider decreasing sedatives on discharge Dr Feliciano recommended leaving MRI to hospitalist criteria Hx of esophageal spasms Patient was scheduled for outpt EGD today with Dr Jacques Hypertension Type 2 diabetes JAIMIE, Neuropathy Hyperlipidemia Continue home meds. Pending med rec A1c from 12/05 was 7.1 Will start Lantus 10 units, lispro 2 units and no dose supplemental. Adjust once home dose is verified Code Status: Full code DVT prophylaxis: Heparin Nutrition: Carb controlled diet PT: Ordered Prognosis: Guarded Disposition: Admit to ortho/ neuro with tele monitoring. Continue medical management Markell Mcallister MD Internal Medicine Resident PGY-1 Date of Service: March 11, 2025 Billing Provider: RUPERT FELICIANO DO Addendum Patient awake and alert at time of assessment minimal recall of events but indicated - "took too much medication" medications reviewed - patient denies taking any narcotics or pain meds - prior narcotic patch for shoulder pain - not taken for "many months" does take 3 separate medications for sleep polypharmacy and UTox (+)Fentanyl/benzo/barbiturates should have review of all meds and adjustments need referral to primary physician on discharge - indicates does not have one d/w patient and resident physician MARKELL PERERA March 11, 2025 03:38 RUPERT FELICIANO DO March 11, 2025 06:51
[2025-03-11] MEDS ORDERED: DEXTROSE 15 GM of carb/4 tabs (each vial/BOTTLE has 4 tablets) PO PRN ×2 (04:00)
[2025-03-11] MEDS ORDERED: glucagon, human recombinant 1mg kit SUBCUT PRN (04:00)
[2025-03-11] MEDS ORDERED: dextrose 50%-water 50ml dispensing syringe IV PRN ×2 (04:00)
[2025-03-11 05:12] LABS: BASOPHILS # (AUTO) 0.1 X10'3 (0-0.2); BASOPHILS % (AUTO) 0.8 % (0-1); EOSINOPHILS # (AUTO) 0.3 X10'3 (0-0.9); EOSINOPHILS % (AUTO) 3.6 % (0-6); HEMATOCRIT 41.5 % (35.0-45.0); HEMOGLOBIN 14.5 g/dl (12.0-16.0); LYMPHOCYTES # (AUTO) 1.6 X10'3 (1.1-4.8); LYMPHOCYTES % (AUTO) 20.9 % (21-51); MEAN CORPUSCULAR HEMOGLOBIN 33.6 PG (27.0-31.0); MEAN CORPUSCULAR HGB CONC 34.9 g/dL (33.0-36.5); MEAN CORPUSCULAR VOLUME 96.4 FL (78-98); MEAN PLATELET VOLUME 8.3 FL (7.4-10.4); MONOCYTES # (AUTO) 0.6 X10'3 (0-0.9); MONOCYTES % (AUTO) 8.1 % (2-12); NEUTROPHILS # (AUTO) 4.9 X10'3 (1.8-7.7); NEUTROPHILS % (AUTO) 66.6 % (42-75); PLATELET COUNT 146 X10'3 (140-440); RED CELL DISTRIBUTION WIDTH 12.6 % (11.5-14.5); WHITE BLOOD COUNT 7.4 X10'3 (4.5-11.0)
[2025-03-11 05:36] LABS: ALANINE AMINOTRANSFERASE 30 U/L (12-78); ALBUMIN 3.3 G/DL (3.4-5.0); ALBUMIN/GLOBULIN RATIO 1.4 (1.1-1.5); ALKALINE PHOSPHATASE 99 IU/L (46-116); ANION GAP 3 (8-16); ASPARTATE AMINO TRANSFERASE 12 U/L (10-37); BILIRUBIN,TOTAL 0.4 MG/DL (0.1-1.0); BLOOD UREA NITROGEN 13 MG/DL (7-18); BUN/CREATININE RATIO 13.1 (10.0-20.0); CALCIUM 9.1 MG/DL (8.5-10.1); CHLORIDE 111 MMOL/L (99-107); CREATININE 0.99 MG/DL (0.40-0.90); GLUCOSE 91 MG/DL (70-104); MAGNESIUM 2.2 MG/DL (1.5-2.4); POTASSIUM 4.6 MMOL/L (3.5-5.1); SODIUM 145 MMOL/L (135-145); THYROID STIMULATING HORMONE 0.44 ulU/ml (0.34-4.50); TOTAL CARBON DIOXIDE 31.5 MMOL/L (24-32); TOTAL PROTEIN 5.7 G/DL (6.4-8.2); eCRCL 59 ML/MIN; eGFR 57 ML/MIN
[2025-03-11 05:52] LABS: HEMOGLOBIN A1C 5.8 % (4.5-6.2)
[2025-03-11] MEDS: INSULIN LISPRO 100 UNIT/ML INSULN.PEN MULTI-DOSE SQ SCH ×2 (07:00→09:00)
[2025-03-11] MEDS: docusate sod 100mg capsule PO SCH (07:39)
[2025-03-11] MEDS: heparin, porcine 5000 units/ml vial SQ SCH (07:43)
[2025-03-11] MEDS: K and/or MAG REPLACEMENT MC SCH (07:44)
[2025-03-11] MEDS ORDERED: TEMAZEPAM PO PRN (08:10)
[2025-03-11] MEDS ORDERED: aspirin 81mg tab.chew PO SCH (08:30)
[2025-03-11] MEDS: pregabalin 75mg capsule PO SCH ×2 (12:13→13:00)
[2025-03-11] MEDS: cloNIDine 0.1 mg tablet PO SCH (12:14)
[2025-03-11] MEDS ORDERED: labetalol 100mg tablet PO SCH (13:00)
[2025-03-11] MEDS ORDERED: PEG 3350/Na sulf,bicarb,Cl/KCl oral sol 4 liter bottle PO ONE (13:25)
--- NOTE | 2025-03-11 13:29 | RADIOLOGY REPORT ---
MRI BRAIN WITHOUT CONTRAST CLINICAL HISTORY: Stroke TECHNIQUE: Multiplanar, multisequence MR images of the brain without intravenous contrast. Comparison: CT HEAD on DOS: 06/08/20 FINDINGS: There is no restricted diffusion. The elizondo and white matter signal is age appropriate. There is no ev idence of hemorrhage, mass, mass effect or midline shift. There is no hydrocephalus or extra-axial fl uid collection. The visualized intracranial vasculature demonstrates appropriate flow-voids. The sagi ttal midline structures appear unremarkable. The craniocervical junction is within normal limits. The calvarium demonstrates appropriate signal. Note is made of hyperostosis frontalis. The paranasal sin uses and mastoid air cells are clear. IMPRESSION: 1. There is no acute intracranial process. HS:Y
[2025-03-11] MEDS ORDERED: carBAMazepine Ext. Release 200 MG TAB.ER.12H PO SCH (20:00)
[2025-03-11] MEDS ORDERED: busPIRone 5mg tablet PO SCH (20:00)
[2025-03-11] MEDS ORDERED: primidone 250mg tablet PO SCH (21:00)
[2025-03-11] MEDS ORDERED: insulin glargine (Lantus) pen - multi-dose SQ SCH ×2 (21:00)
--- NOTE | 2025-03-11 21:19 | DISCHARGE SUMMARY-Residence ---
Discharge Summary Providers to CC Resident Creating Document: RAGHAVENDRA WILD, RES ~ Discharge Summary Admission Diagnosis: Stroke rule out Hospital Course DATE OF ADMISSION: 03/11/2025 DATE OF DISCHARGE: Left against medical advice today Discharge Diagnosis\Comment: Altered level of consciousness Toxic encephalopathy secondary to medication Possible stroke Polypharmacy Hx of esophageal spasms Hypertension Type 2 diabetes JAIMIE, Neuropathy Hyperlipidemia Operations\Procedures: None Consultants: Tele neurology Complications: None Condition on DC: Stable Discharge Summary: HPI as per admitting physician: Patient is a 60-year-old female with a history of hypertension, type 2 diabetes, JAIMIE, neuropathy, hyperlipidemia and stroke who came into the ED due to altered level of consciousness. Patient was very drowsy at the time of my examination in communication was challenging, however, she was able to wake up on and off and answer some questions. She reports that at around 8:00 p.m. today she presented with confusion, tired along with headaches. She states she called a friend who told her that her speech sounded slurred. She is not sure why but afterwards she decided to take all her medications which included temazepam, carbamazepine, labetalol, magnesium and a few additional medications that I was not able to comprehend. Hospital course: The patient was admitted with altered level of consciousness concerning for toxic encephalopathy, possible stroke, and polypharmacy-related overdose. She exhibited right mouth commissure droopiness, which she stated was new. Tele-neurology was consulted and did not recommend thrombolytic or intra- arterial intervention, as her presentation was inconsistent with stroke. Workup revealed a positive urine drug screen for fentanyl, barbiturates, and benzodiazepines, as well as a urinary tract infection. Imaging including CT head and CT angiogram of the head and neck showed no acute abnormalities. MRI head was within normal limits. The patient has a history of hypertension, type 2 diabetes, JAIMIE, hyperlipidemia, neuropathy, and esophageal spasms, and was scheduled for an outpatient EGD with Dr. Jacques. Patient underwent EGD on 03/11/25. Patient had a number of allergies which are not confirmed Patient's medications during hospital stable adjusted as followed Bupropion reduced to 150 mg Held clonidine duloxetine reduced to 30 mg Held meloxicam Held mirabegron Pregabalin reduced to 70 mg b.i.d. Held temazepam Despite counseling, the patient left the hospital against medical advice prior to completing full evaluation and treatment. Physical examination today: General: awake, alert oriented to place, time, and person HEENT: She has a right mouth commissure droopiness. No pallor present, no icterus, moist mucous membranes Neck: No masses and tenderness Resp: Unlabored. Lungs clear to auscultation bilaterally. Heart: Regular Rate and rhythm, normal S1 and S2 without murmur, rub or gallop Abdomen: Soft and non tender no organomegaly, no guarding and rigidity, bowel s ounds present Neuro: Patient was unable to raise either leg or arm against gravity. Knee reflex present bilaterally. Cranial nerves intact Extremities: No cyanosis,clubbing or edema Skin: Warm and Dry. No lesions *Problems/Diagnosis: (1) Metabolic encephalopathy Status: Acute (2) Accidental overdose Status: Acute Total Time Spent on D/C: > 30 Minutes Date of Service: March 11, 2025 Billing Provider: GLENNA VINCENT MD Common Visit Codes: 05567-QOZ/OBS DISCH DAY >30min Problem Qualifiers (1) Accidental overdose: Encounter type: initial encounter Qualified Codes: T50.901A - Poisoning by unspecified drugs, medicaments and biological substances, accidental (u nintentional), initial encounter RAGHAVENDRA WILD, VIKY March 11, 2025 21:11 GLENNA VINCENT MD March 12, 2025 19:04
[2025-03-12] MEDS ORDERED: duloxetine 30mg CAPSULE.DR PO SCH ×2 (08:00)
[2025-03-12] MEDS ORDERED: EMPAGLIFLOZIN 25 MG TABLET PO SCH (08:00)
[2025-03-12] MEDS ORDERED: levoTHYROXINE 100mcg tablet PO SCH (08:00)
[2025-03-12] MEDS ORDERED: MIRABEGRON 25 MG PO SCH (08:00)
[2025-03-12] MEDS ORDERED: BUPROPION HCL 150MG XL 24 HR 150 MG TAB PO SCH ×2 (08:00)
[2025-03-12] MEDS ORDERED: pantoprazole 40mg Tablet.DR PO SCH (08:00)
[2025-03-12] MEDS ORDERED: amLODIPine 5mg tablet PO SCH (08:00)
[2025-03-12] MEDS ORDERED: furosemide 20MG tablet PO SCH (08:00)
[2025-03-12] MEDS ORDERED: multivitamins, therapeutics tablet PO SCH (08:00)
[2025-03-12] MEDS ORDERED: primidone 50mg tablet PO SCH (08:00)
== END 2025-03-11 14:40 | disposition left against medical advice (07) | DRG 917 ==
LOC: ER 21:47 → ED HOLD 23:43 → ORTHO 4S 03-11 01:50
PROVIDERS: ADMIT Internal Medicine Critical Care Medicine; ATTEND Internal Medicine
PROC: B3251ZZ Computerized Tomography (CT Scan) of Bilateral Common Carotid Arteries using Low Osmolar Contrast (ICD-10-PCS; 2025-03-10)
PROC: B32G1ZZ Computerized Tomography (CT Scan) of Bilateral Vertebral Arteries using Low Osmolar Contrast (ICD-10-PCS; 2025-03-10)
PROC: B32R1ZZ Computerized Tomography (CT Scan) of Intracranial Arteries using Low Osmolar Contrast (ICD-10-PCS; 2025-03-10)
PROC: B3281ZZ Computerized Tomography (CT Scan) of Bilateral Internal Carotid Arteries using Low Osmolar Contrast (ICD-10-PCS; 2025-03-10)
PROC: 0DB68ZX Excision of Stomach, Via Natural or Artificial Opening Endoscopic, Diagnostic (ICD-10-PCS; principal; 2025-03-11)
DX: T50.991A Poisoning by other drugs, medicaments and biological substances, accidental (unintentional), initial encounter (principal); G92.8 Other toxic encephalopathy; N39.0 Urinary tract infection, site not specified; Z53.21 Procedure and treatment not carried out due to patient leaving prior to being seen by health care provider; J44.9 Chronic obstructive pulmonary disease, unspecified; E78.00 Pure hypercholesterolemia, unspecified; F32.A Depression, unspecified; I10 Essential (primary) hypertension; G47.33 Obstructive sleep apnea (adult) (pediatric); K29.70 Gastritis, unspecified, without bleeding; M79.7 Fibromyalgia; E11.40 Type 2 diabetes mellitus with diabetic neuropathy, unspecified; Z88.1 Allergy status to other antibiotic agents; Y92.89 Other specified places as the place of occurrence of the external cause; Z88.5 Allergy status to narcotic agent; Z88.0 Allergy status to penicillin; Z88.2 Allergy status to sulfonamides; Z88.8 Allergy status to other drugs, medicaments and biological substances; Z91.09 Other allergy status, other than to drugs and biological substances; Z79.4 Long term (current) use of insulin; Z90.710 Acquired absence of both cervix and uterus; Z79.899 Other long term (current) drug therapy; Z86.73 Personal history of transient ischemic attack (TIA), and cerebral infarction without residual deficits; Z98.891 History of uterine scar from previous surgery; Z87.891 Personal history of nicotine dependence
CPT/HCPCS: 36415; 43239; 70450; 70496; 70498; 70551; 71045; 80048; 80053; 80305; 80320; 81001; 82140; 82607; 82948; 83036; 83735; 84132; 84443; 85025; 85610; 85730; 87081; 87088; 88305; 93005; 99285; A4620; G0378; J1815; J7030

== ENCOUNTER 2025-10-15 10:42 | Emergency (ER) | payer MEDICARE, MEDICAID ==
[~2025-10-15] VITALS: Ht 172.7 cm; Wt 113.6 kg
[~2025-10-15 10:42] MED LIST changes: +ERGO125018 PO; -ERGO500041 PO; -INSU100V40; -INSU100V41 SQ; -LABE100T8 PO; -LEVO300T2 PO; -MIRA25TA PO; +[UNRECOGNIZED DRUG - CODE] PO
[2025-10-15 11:37] LABS: MEAN PLATELET VOLUME 8.6 FL (7.4-10.4); RED CELL DISTRIBUTION WIDTH 13.1 % (11.5-14.5)
[2025-10-15 11:47] LABS: URINE HCG NEGATIVE (NEG)
[2025-10-15 11:49] LABS: LEUKOCYTE ESTERASE ,URINE NEGATIVE (Neg); NITRITES, URINE NEGATIVE (Neg); OCCULT BLOOD,URINE NEGATIVE (Neg)
[2025-10-15 11:55] LABS: UA COLLECTION TYPE CLN CATCH MIDSTREAM
[2025-10-15 11:57] LABS: MUCUS STRANDS NONE SEEN /LPF (Neg); SQUAMOUS EPITHELIAL CELL,UR FEW /LPF (FEW); YEAST FEW /HPF (NEGATIVE)
[2025-10-15 12:11] LABS: CREATININE 1.14 MG/DL (0.40-0.90); TOTAL CARBON DIOXIDE 32.3 MMOL/L (24-32); eCRCL 52 ML/MIN; eGFR 48 ML/MIN
[2025-10-15] MEDS: normal saline 1000ML IV soln IVB ONE (13:32)
--- NOTE | 2025-10-15 13:57 | Physician Documentation ---
History of Present Illness ~ Chief Complaint: Abdominal Pain Stated Complaint: PELVIC PAIN Time Seen by MD: 12:05 [facility] Source: patient Mode of Arrival: POV Exam Limitations: no limitations HPI 60-year-old female here due to suprapubic pain. She states his pain has been going on now for several days. She saw Dr. Mckeon her urologist on Saturday for these symptoms and states that she was told that her urine culture that was collected on Saturday was negative. She has a history of urethral stenosis and dilation and she is wondering if she may need to have this done again. She does have a follow up scheduled with Dr. Mckeon as her appointment on Saturday was apparently her 1st appointment. She also was told by her pain management provider when she recently had labs done prior to a placement of a spinal stimulator device that she had a slightly elevated white count. She denies any symptoms of infection such as fever, chills, cough, diarrhea, constipation, pain with urination. She states her only symptoms are fatigue which has been going on for months and suprapubic pain which has been going on now for a few weeks. Incidental finding of hyperkalemia on her lab work. She is not on potassium she states she takes Lasix 20 mg a day. She is not sure why she is on Lasix 20 mg a day as she states she has never had high potassium before. She has not missed any dosages of her Lasix. Medication Reconciliation Allergies: Coded Allergies: Penicillins (Verified Allergy, Mild, RASH/PRURITUS, 03/10/25) Cephalexin Monohydrate (Verified Allergy, Unknown, 03/10/25) adhesive tape (Verified Allergy, Unknown, 03/10/25) atropine (Verified Allergy, Unknown, 03/10/25) ciprofloxacin (Verified Allergy, Unknown, 03/10/25) ciprofloxacin HCl (Verified Allergy, Unknown, 03/10/25) codeine (Verified Allergy, Unknown, 03/10/25) fexofenadine HCl (Verified Allergy, Unknown, 03/10/25) fluoxetine HCl (Verified Allergy, Unknown, 03/10/25) hydromorphone HCl (Verified Allergy, Unknown, 03/10/25) meperidine HCl (Verified Allergy, Unknown, 03/10/25) morphine (Verified Allergy, Unknown, 03/10/25) niacin (Verified Allergy, Unknown, 03/10/25) norfloxacin (Verified Allergy, Unknown, 03/10/25) ondansetron HCl (Verified Allergy, Unknown, 03/10/25) prochlorperazine edisylate (Verified Allergy, Unknown, 03/10/25) prochlorperazine maleate (Verified Allergy, Unknown, 03/10/25) sulfamethoxazole (Verified Allergy, Unknown, 03/10/25) trimethoprim (Verified Allergy, Unknown, 03/10/25) hydrocodone (Unverified Adverse Reaction, Mild, 03/10/25) Scheduled Amlodipine Besylate (Amlodipine Besylate), 1 TAB PO DAILY, (Reported) Bupropion XL (Bupropion Xl), 1 TAB PO QAM, (Reported) Buspirone HCl (Buspirone HCl), 1 TAB PO Q12H, (Reported) Carbamazepine (Carbamazepine), 1 CAP PO BID, (Reported) Clonidine HCl (Clonidine HCl), 1 CAP PO TID, (Reported) Duloxetine HCl (Duloxetine HCl), 1 CAP PO DAILY, (Reported) Empagliflozin (Jardiance), 1 TAB PO DAILY, (Reported) Ergocalciferol (Vitamin D2) (Vitamin D2), 1 CAP PO Q7D, (Reported) Furosemide (Lasix), 1 TAB PO DAILY, (Reported) Labetalol Hcl (Labetalol Hcl), 20 MG PO TID, (Reported) Multivitamin (Multi Vitamin Daily), 1 TAB PO DAILY, (Reported) Pantoprazole Sodium (Pantoprazole Sodium), 1 TAB PO DAILY, (Reported) Pregabalin (Pregabalin), 1 CAP PO TID, (Reported) [Primidone], 150 MG PO DAILY, (Reported) [Primidone], 250 MG PO HS, (Reported) Scheduled PRN Temazepam (Temazepam), 1 CAP PO HSPRN PRN for sleep, (Reported) Miscellaneous Medications Meloxicam* (Meloxicam*), (Reported) Mirtazapine (Mirtazapine), (Reported) Montelukast Sodium (Montelukast Sodium), (Reported) Nystatin (NYSTOP powder), 1 APPLIC TP, (Reported) Semaglutide (Ozempic), 1 MG, (Reported) Past Medical History Past Medical History: CVA/TIA/Stroke, High Cholesterol, Hypertension, Asthma, COPD, Sleep Apnea, Diabetes, Thyroid (unspecified), Extremity Fracture, Fibromyalgia, *PSYCH*, Depression Past Surgical History: , hysterectomy Alcohol Use: None Drug Use: none Lives with: Alone Lives In: Home Occupation: disabled Review of Systems All Other Systems at this time: Reviewed and Negative Physical Exam Vital Signs: Temperature: 97.8, Heart Rate: 73, Respiratory Rate: 18, BP: 136/81, Pulse Oximetry: 97, Weight: 113.640 Oxygen Flow Rate: 0 Physical Exam General Appearance: Alert, WD/WN. NAD. HEENT: NCAT, PERRL, EOMI. Neck: Supple, trachea midline. Cardiovascular: RRR. No m/r/g. Lungs: CTAB. Breathing unlabored Abdomen: Soft, nondistended, minimal tenderness over suprapubic area no guarding or rebound Extremities: Normal inspection. No edema. Skin: Warm/dry, normal color Neurological: Alert and oriented x4, normal gait. Psychiatric: Affect congruent with mood. Progress Results/Orders Results/Orders Orders - CECILY FELICIANO Bladder Scan (10/15/25 ) Completed Orders - CECILY FELICIANO Normal Saline 1000ml (0.9% Sodium Chlori (10/15/25 13:05) Furosemide Inj (Lasix Inj) (10/15/25 13:05) Medications Received in ER Medications (Trade) Dose Ordered Sig/Corinne Route PRN Reason Start Time Stop Time Status Last Admin Dose Admin (0.9% sodium chloride (NS) 1000ml IV soln) 1,000 ml ONCE ONCE IVB 10/15/25 13:05 10/15/25 13:07 DC 10/15/25 13:32 1,000 ML Vital Signs 10/15/25 10/15/25 10:47 11:55 Temp 97.8 Pulse 73 Resp 16 18 B/P (MAP) 136/81 Pulse Ox 97 O2 Flow Rate 0 Laboratory Tests Test 10/15/25 10:57 10/15/25 11:23 Urine Specimen Description Cln catch midstream Urine Color Yellow Urine Clarity Clear Urine pH 7.0 Urine Specific [place] 1.010 Urine Protein Negative Urine Glucose (UA) >=1000 H Urine Ketones Negative Urine Occult Blood Negative Urine Nitrite Negative Urine Bilirubin Negative Urine Urobilinogen 0.2 Urine Leukocyte Esterase Negative Urine RBC None seen Urine WBC 0-4 Urine Squamous Epithelial Cells Few Urine Bacteria Few Urine Mucus None seen Urine Yeast Few Urine Culture Indicated Not ind Volume Urine Centrifuged 10 ml Urine HCG, Qualitative Negative Urine Comment White Blood Count 12.1 H Red Blood Count 4.51 Hemoglobin 14.7 Hematocrit 43.2 Mean Corpuscular Volume 95.8 Mean Corpuscular Hemoglobin 32.7 H Mean Corpuscular Hemoglobin Concent 34.1 Red Cell Distribution Width 13.1 Platelet Count 182 Mean Platelet Volume 8.6 Neutrophils (%) (Auto) 87.9 H Lymphocytes (%) (Auto) 6.0 L Monocytes (%) (Auto) 4.2 Eosinophils (%) (Auto) 1.4 Basophils (%) (Auto) 0.5 Neutrophils # (Auto) 10.7 H Lymphocytes # (Auto) 0.7 L Monocytes # (Auto) 0.5 Eosinophils # (Auto) 0.2 Basophils # (Auto) 0.1 CBC Comment Sodium Level 141 Potassium Level 5.8 H Chloride Level 105 Carbon Dioxide Level 32.3 H Anion Gap 4 L Blood Urea Nitrogen 16 Creatinine 1.14 H Estimated GFR/1.73 m2 48 BUN/Creatinine Ratio 14.0 Glucose Level 289 H Calcium Level 8.6 Total Bilirubin 0.3 Aspartate Amino Transf (AST/SGOT) 27 Alanine Aminotransferase (ALT/SGPT) 42 Alkaline Phosphatase 145 H Total Protein 6.9 Albumin 3.4 Globulin 3.5 Albumin/Globulin Ratio 1.0 L Lipase 16 Chemistry Comments Medical Decision Making Additional information obtaine: N/A Findings n/a Urinary Diff Dx:Considerations: Include: AAA, , Aortic dissection, Appendicitis, Bowel obstruction, Cholelithiasis, Choleangitis, DJD, Ectopic , Hepatitis, HNP, Impaction, Intrauterine , Musculoskeletal pain, Ovarian torsion, Pancreatitis, PID, Post-Op complication, Pyelonephritis, Renal failure, Strain, Urinary Obstruction, Urolithiasis, Urinary retention, UTI, Vaginitis, Other Genital Diff Dx:Considerations: Unlikely: Other Additional Comment Patient's vitals are normal her urinalysis here is negative due to the suprapubic discomfort we did a bladder scan to assess for urinary retention and there was not significant postvoid residual on the bladder scan. Cause of her suprapubic pain is unclear but she has no gastrointestinal symptoms or any other red flag signs or symptoms on exam. Her white count is slightly elevated but it sounds like this is not new as she was told by her pain management provider that her white count was slightly elevated. Departure Time of Disposition: 13:55 Disposition: 01 HOME / SELF CARE / HOMELESS Impression: Primary Impression: Suprapubic pain Additional Impressions: Hyperkalemia Elevated WBC count Qualified Codes: D72.829 - Elevated white blood cell count, unspecified Condition: Stable Discharge Instructions: General Discharge Instructions Additional Instructions: Follow up with your primary care provider to have your white blood cell count followed up on since you report that the white blood cell count was elevated for your pain management provider as well. This is something that you may need to get referred to a business services associate for but you need more data before referring to a business services associate to prove that this is a persistent issue. There was no evidence for an infection here today your urinalysis is negative your afebrile your exam is virtually normal. The suprapubic pain that you have it sounds like it is not all that new of the symptom and you are already established with Dr. Mckeon and plan to follow up with him. This may be due to issues with some urinary retention even though there was not a significant amount of postvoid residual on your bladder scan here today given your history this is certainly possible. Follow up with your primary care provider as well as your urologist if you experience fever or any new concerning symptoms such as vomiting, diarrhea pain when you urinate return to the emergency room. You also need to make sure that your potassium that was elevated here in the ER today gets rechecked in one week by your primary care provider Referrals: NO PRIMARY CARE PROVIDER (PCP) Education Educated: Patient Educated regarding: diagnosis, treatment, need for follow up Signature Scribe Signature: x Attestation: CECILY Bosch Oct 15, 2025 13:57
[2025-10-15] MEDS: furosemide 10 MG/1 ML 10ml inj IV ONE (14:07)
[2025-10-15 14:25] VITALS: BP 167/119; PULSE 78; RESP 20; O2SAT 97
[2025-10-15 14:38] VITALS: TEMP 97.8
== END 2025-10-15 14:44 | disposition home or self-care (01) ==
LOC: ER 10:43
DX: R10.24 Suprapubic pain (principal); D72.829 Elevated white blood cell count, unspecified; E87.5 Hyperkalemia; E11.9 Type 2 diabetes mellitus without complications; E78.00 Pure hypercholesterolemia, unspecified; G47.30 Sleep apnea, unspecified; I10 Essential (primary) hypertension; J44.9 Chronic obstructive pulmonary disease, unspecified; M79.7 Fibromyalgia; F32.A Depression, unspecified; Z88.0 Allergy status to penicillin; Z88.1 Allergy status to other antibiotic agents; Z88.5 Allergy status to narcotic agent; Z88.8 Allergy status to other drugs, medicaments and biological substances; Z90.710 Acquired absence of both cervix and uterus; Z91.048 Other nonmedicinal substance allergy status; Z79.899 Other long term (current) drug therapy; Z86.73 Personal history of transient ischemic attack (TIA), and cerebral infarction without residual deficits; Z60.2 Problems related to living alone; Z98.890 Other specified postprocedural states
CPT/HCPCS: 36415; 51798; 80053; 81001; 81025; 83690; 85025; 96361; 96374; 99284; J1938; J7030

== ENCOUNTER 2025-10-18 14:14 | Emergency (ER) | payer MEDICARE, MEDICAID ==
[~2025-10-18] VITALS: Ht 172.7 cm; Wt 113.6 kg
[2025-10-18 14:19] VITALS: BP 132/90; PULSE 76; RESP 16; TEMP 97.9; O2SAT 97
--- NOTE | 2025-10-18 14:29 | Physician Documentation ---
History of Present Illness Stated Complaint: SEE CHEIF COMPLAINT Primary Medical Doctor: [facility] Is a very pleasant 60-year-old female that presents to the emergency department for evaluation of multi symptom complaints. Patient reports that she has had several weeks of shaking spasming in different areas of her body diarrhea hyperkalemia as told by her primary care provider last week. He has undergone several workups during this time in his scheduled to see a neurologist. No emergent symptoms reported at this time but patient requesting workup and re-e valuation. Medication Reconciliation Allergies: Coded Allergies: Penicillins (Verified Allergy, Mild, RASH/PRURITUS, 03/10/25) Cephalexin Monohydrate (Verified Allergy, Unknown, 03/10/25) adhesive tape (Verified Allergy, Unknown, 03/10/25) atropine (Verified Allergy, Unknown, 03/10/25) ciprofloxacin (Verified Allergy, Unknown, 03/10/25) ciprofloxacin HCl (Verified Allergy, Unknown, 03/10/25) codeine (Verified Allergy, Unknown, 03/10/25) fexofenadine HCl (Verified Allergy, Unknown, 03/10/25) fluoxetine HCl (Verified Allergy, Unknown, 03/10/25) hydromorphone HCl (Verified Allergy, Unknown, 03/10/25) meperidine HCl (Verified Allergy, Unknown, 03/10/25) morphine (Verified Allergy, Unknown, 03/10/25) niacin (Verified Allergy, Unknown, 03/10/25) norfloxacin (Verified Allergy, Unknown, 03/10/25) ondansetron HCl (Verified Allergy, Unknown, 03/10/25) prochlorperazine edisylate (Verified Allergy, Unknown, 03/10/25) prochlorperazine maleate (Verified Allergy, Unknown, 03/10/25) sulfamethoxazole (Verified Allergy, Unknown, 03/10/25) trimethoprim (Verified Allergy, Unknown, 03/10/25) hydrocodone (Unverified Adverse Reaction, Mild, 03/10/25) Scheduled Amlodipine Besylate (Amlodipine Besylate), 1 TAB PO DAILY, (Reported) Bupropion XL (Bupropion Xl), 1 TAB PO QAM, (Reported) Buspirone HCl (Buspirone HCl), 1 TAB PO Q12H, (Reported) Carbamazepine (Carbamazepine), 1 CAP PO BID, (Reported) Clonidine HCl (Clonidine HCl), 1 CAP PO TID, (Reported) Duloxetine HCl (Duloxetine HCl), 1 CAP PO DAILY, (Reported) Empagliflozin (Jardiance), 1 TAB PO DAILY, (Reported) Ergocalciferol (Vitamin D2) (Vitamin D2), 1 CAP PO Q7D, (Reported) Furosemide (Lasix), 1 TAB PO DAILY, (Reported) Labetalol Hcl (Labetalol Hcl), 20 MG PO TID, (Reported) Multivitamin (Multi Vitamin Daily), 1 TAB PO DAILY, (Reported) Pantoprazole Sodium (Pantoprazole Sodium), 1 TAB PO DAILY, (Reported) Pregabalin (Pregabalin), 1 CAP PO TID, (Reported) [Primidone], 150 MG PO DAILY, (Reported) [Primidone], 250 MG PO HS, (Reported) Scheduled PRN Temazepam (Temazepam), 1 CAP PO HSPRN PRN for sleep, (Reported) Miscellaneous Medications Meloxicam* (Meloxicam*), (Reported) Mirtazapine (Mirtazapine), (Reported) Montelukast Sodium (Montelukast Sodium), (Reported) Nystatin (NYSTOP powder), 1 APPLIC TP, (Reported) Semaglutide (Ozempic), 1 MG, (Reported) Past Medical History Past Medical History: CVA/TIA/Stroke, High Cholesterol, Hypertension, Asthma, COPD, Sleep Apnea, Diabetes, Thyroid (unspecified), Extremity Fracture, Fibromyalgia, *PSYCH*, Depression Past Surgical History: , hysterectomy Alcohol Use: None Drug Use: none Lives with: Alone Lives In: Home Occupation: disabled Departure Referrals: NO PRIMARY CARE PROVIDER (PCP) DANNIE DÍAZ Oct 18, 2025 14:29
== END 2025-10-18 20:34 | disposition left against medical advice (07) ==
LOC: ER 14:15
DX: R19.7 Diarrhea, unspecified (principal); J44.9 Chronic obstructive pulmonary disease, unspecified; E11.9 Type 2 diabetes mellitus without complications; E78.00 Pure hypercholesterolemia, unspecified; G47.30 Sleep apnea, unspecified; I10 Essential (primary) hypertension; M79.7 Fibromyalgia; F32.A Depression, unspecified; Z86.73 Personal history of transient ischemic attack (TIA), and cerebral infarction without residual deficits; Z88.0 Allergy status to penicillin; Z88.1 Allergy status to other antibiotic agents; Z91.048 Other nonmedicinal substance allergy status; Z88.5 Allergy status to narcotic agent; Z88.8 Allergy status to other drugs, medicaments and biological substances; Z88.2 Allergy status to sulfonamides; Z90.710 Acquired absence of both cervix and uterus; Z79.899 Other long term (current) drug therapy; Z60.2 Problems related to living alone; Z53.21 Procedure and treatment not carried out due to patient leaving prior to being seen by health care provider
CPT/HCPCS: 99281; 99282